=== PATIENT | male | born 1985 | race Caucasian/White ===

== ENCOUNTER 2016-06-27 15:00 | Emergency (ER) | payer MEDICAID, OTHER ==
[2016-06-27 17:33] LABS: Hematocrit 46 % (42-52); Hemoglobin 15.3 g/dl (14.0-18.0); Mean Corpuscular HGB Conc 33 g/dl (31-36); Mean Corpuscular Hemoglobin 30 pg (27-31); Mean Corpuscular Volume 88 fL (80-94); Mean Platelet Volume 8 um3 (7.4-10.4); Red Blood Count 5.21 10^6/ul (4.0-5.4); Red Cell Distribution Width 14 % (10.5-15); White Blood Count 12.3 10^3/ul (3.5-10.8)
[2016-06-27] MEDS ORDERED: Ketorolac INJ* 30 MG/ML 1 ML VIAL IV ONE ×2 (17:40)
[2016-06-27] MEDS ORDERED: NS 0.9% 1000 ML* 2,000 ML IV ONE ×2 (17:40)
[2016-06-27 17:49] LABS: Albumin 4.8 g/dL (3.2-5.2); BUN/Creatinine Ratio 12.1 (8-20); Calcium 10.1 mg/dL (8.6-10.3); EGFR African American 125.8 (>60); EGFR Non-African American 97.8 (>60); Globulin 3.4 g/dL (2-4); Potassium 3.8 mmol/L (3.5-5.0); Total Bilirubin 0.4 mg/dL (0.2-1.0); Total Protein 8.2 g/dL (6.4-8.9)
[2016-06-27] MEDS ORDERED: Ondansetron INJ* 2 MG/ML VIAL IV ONE ×2 (18:02)
[2016-06-27 18:05] LABS: Urine Bilirubin Negative (Negative); Urine Glucose Negative (Negative); Urine Nitrite Negative (Negative)
[2016-06-27] MEDS ORDERED: Iohexol 300* (CONTRAST) 10 ML SDV IV ONE (18:51)
[2016-06-27] MEDS ORDERED: HYDROmorphone INJ* 1 MG/ML CARPUJECT SYRINGE IV ONE ×2 (18:58)
--- NOTE | 2016-06-27 20:28 | RAD ---
INDICATION: Abdominal pain COMPARISON: CT October 17, 2015; CT June 10, 2015 TECHNIQUE: Axial source images were obtained from the hemidiaphragms to the symphysis pubis following administration of oral and intravenous contrast. 150 mL Omnipaque 300 was utilized. Coronal and sagittal reconstructed images were acquired. Lung bases: The lung bases are clear. Liver: The liver is normal in size. There is hepatic steatosis. There are no masses. There is no ductal dilatation. Gallbladder: There are no calcified gallstones. There is no evidence of wall thickening or pericholecystic fluid. Spleen: The spleen is normal in size. There are no masses. Pancreas: There is no focal pancreatic mass or ductal dilatation. Adrenal glands: There is no evidence of adrenal mass. Kidneys: The kidneys are normal in size and position. There are prompt nephrograms and there is prompt excretion bilaterally. There are no new renal parenchymal masses. There is an exophytic 1.7 cm left renal lesion appearing unchanged. There is no evidence of nephrolithiasis. Adenopathy: There is no evidence of adenopathy by size criteria. Fluid collections: There are no free or localized fluid collections. Vessels:There are no significant atherosclerotic changes involving the aorta. There is no focal aneurysm. The iliac vessels are normal in caliber. The IVC appears normal. GI tract: The upper GI tract is unremarkable. There is small bowel herniation at the site of ostomy reversal left lower quadrant. There are no findings of obstruction or strangulation. There is resection at the level of the sigmoid colon. Anastomosis appears widely patent. Scattered diverticula of the descending colon. The large bowel is otherwise unremarkable. The appendix is visualized and appears normal. Pelvic organs: The prostate and seminal vesicles appear normal Bladder: There are no bladder masses. Abdominal and pelvic soft tissues: Diastasis rectus abdominis with suture, unchanged. Incisional hernia left lower quadrant as noted above. Osseous structures: There are no acute osseous findings. Other: None IMPRESSION: 1. Colostomy reversal left lower quadrant. There is herniation of bowel at the operative site with no findings of obstruction or strangulation. 2. Normal appendix. 3. Rectus muscle diastases 4. Scattered diverticula descending colon. 5. Hepatic steatosis. 6. Stable left renal lesion
[2016-06-27 20:52] VITALS: BP 120/79
--- NOTE | 2016-06-29 23:19 | ED ---
Braulio Parada Erika, scribed for Jamie Jennings MD on 06/27/16 at 1748 . Abdominal Pain/Male - HPI Summary HPI Summary: Patient is a 30-year-old male presenting to the ED with a CC of LLQ pain. He reports a Hx of a perforated bowel last year due to a foreign body in the anus. He had a colostomy bad after the foreign body removal, and had a reversal surgery in January [address] Umaña. Today, patient notes pain in the LLQ, aggravated by palpation and PO intake. He states he has been nauseated secondary to pain, but denies vomiting. He also reports he has not had a BM today, and usually has one daily around 12:00. Patient notes he has had difficulty keeping a stream of urine going as well so he has been urinating small amounts of urine more frequently. - History of Current Complaint Chief Complaint: EDAbdPain Stated Complaint: ABD PAIN Time Seen by Provider: 06/27/16 17:25 Hx Obtained From: Patient Onset/Duration: Gradual Onset, Lasting Hours, Still Present Timing: Constant Severity Currently: Moderate Pain Intensity: 9 Pain Scale Used: 0-10 Numeric Location: Discrete At: LLQ Radiates: No Aggravating Factor(s): Food, Other: - palpation Alleviating Factor(s): Nothing Associated Signs And Symptoms: Positive: Nausea. Negative: Vomiting - Allergies/Home Medications Allergies/Adverse Reactions: Allergies Allergy/AdvReac Type Severity Reaction Status Date / Time Sulfa Antibiotics Allergy Unknown Verified 01/03/16 12:38 Reaction Details Home Medications: Home Medications clonazePAM TAB(*) [KlonoPIN TAB(*)] 0.5 mg PO BEDTIME 06/27/16 [History Confirmed 06/27/16] PMH/Surg Hx/FS Hx/Imm Hx Endocrine/Hematology History: Denies: Hx Diabetes, Hx Systemic Lupus Erythematosus Cardiovascular History: Denies: Hx Congestive Heart Failure, Hx Hypertension Respiratory History: Denies: Hx Seasonal Allergies, Hx Sleep Apnea GI History: Reports: Other GI Disorders - PERFORATED BOWEL, COLOSTOMY History: Reports: Other Problems/Disorders - CYST LEFT KIDNEY Denies: Hx Dialysis, Hx Renal Disease Musculoskeletal History: Denies: Hx Rheumatoid Arthritis Sensory History: Denies: Hx Contacts or Glasses, Hx Hearing Aid Opthamlomology History: Denies: Hx Contacts or Glasses Neurological History: Reports: Hx Headaches, Hx Migraine - 2x month;take tylenol , Other Neuro Impairments/Disorders - BIPOLAR, INSOMNIA Denies: Hx Dementia, Hx Developmental Delay, Hx Nerve Disease, Hx Seizures, Hx Spinal Cord Injury, Hx Transient Ischemic Attacks (TIA) Psychiatric History: Reports: Hx Anxiety, Hx Depression, Hx Community Mental Health Tx, Hx Bipolar Disorder, Hx of Violent Episodes Against Others, Hx Substance Abuse, Other Psychiatric Issues/Disorders Denies: Hx Eating Disorder - Cancer History Hx Chemotherapy: No - Surgical History Surgery Procedure, Year, and Place: 2016, Open Abdomen for colectomy, colostomy placement. abscess drainage buttocks Hx Anesthesia Reactions: Yes - PATIENT STATES WOKE UP WITH A SEVERE HEADACHE, VIVID DREAMS - Immunization History Date of Tetanus Vaccine: Unknown Infectious Disease History: Yes Infectious Disease History: Reports: Hx of Known/Suspected MRSA Denies: Traveled Outside the US in Last 30 Days - Family History Family History: Denies FHx anesthesia reaction - Social History Lives: Detention - Prison Hx Substance Use: Yes Substance Use Comment - Amount & Last Used: hx of polysubstance abuse - NOT AT THIS TIME Hx Tobacco Use: Yes Smoking Status (MU): Light Every Day Tobacco Smoker Type: Cigarettes Amount Used/How Often: 1-2 CIGARETTES A DAY Have You Smoked in the Last Year: Yes Review of Systems Positive: Abdominal Pain, Nausea. Negative: Vomiting Genitourinary: Other - decreased stream of urine All Other Systems Reviewed And Are Negative: Yes Physical Exam Triage Information Reviewed: Yes Vital Signs On Initial Exam: Initial Vitals Temp Pulse Resp BP Pulse Ox 97.7 F 118 18 150/110 100 06/27/16 15:22 06/27/16 15:22 06/27/16 15:22 06/27/16 15:22 06/27/16 15:22 Vital Signs Reviewed: Yes Appearance: Positive: Well-Appearing, No Pain Distress Skin: Positive: Warm, Skin Color Reflects Adequate Perfusion, Dry Head/Face: Positive: Normal Head/Face Inspection Eyes: Positive: Normal ENT: Positive: Normal ENT inspection Neck: Positive: Supple, Nontender Respiratory/Lung Sounds: Positive: Clear to Auscultation, Breath Sounds Present Cardiovascular: Positive: Tachycardia - at 118 on triage Abdomen Description: Positive: Soft, Other: - Tenderness to the LLQ. No hernia palpated. Healed scars on the abdomen Bowel Sounds: Positive: Present Musculoskeletal: Positive: Normal Neurological: Positive: Normal Psychiatric: Positive: Affect/Mood Appropriate Diagnostics - Vital Signs Vital Signs Temp Pulse Resp BP Pulse Ox 06/27/16 15:22 97.7 F 118 18 150/110 100 - Laboratory Lab Results: Lab Results 06/27/16 06/27/16 06/27/16 Range/Units 17:25 17:25 17:25 WBC 12.3 H (3.5-10.8) 10^3/ul RBC 5.21 (4.0-5.4) 10^6/ul Hgb 15.3 (14.0-18.0) g/dl Hct 46 (42-52) % MCV 88 (80-94) fL MCH 30 (27-31) pg MCHC 33 (31-36) g/dl RDW 14 (10.5-15) % Plt Count 246 (150-450) 10^3/ul MPV 8 (7.4-10.4) um3 Neut % (Auto) 63.9 (38-83) % Lymph % (Auto) 25.8 (25-47) % Russell % (Auto) 9.5 H (1-9) % Eos % (Auto) 0.3 (0-6) % Baso % (Auto) 0.5 (0-2) % Absolute Neuts (auto) 7.8 H (1.5-7.7) 10^3/ul Absolute Lymphs (auto) 3.2 (1.0-4.8) 10^3/ul Absolute Monos (auto) 1.2 H (0-0.8) 10^3/ul Absolute Eos (auto) 0 (0-0.6) 10^3/ul Absolute Basos (auto) 0.1 (0-0.2) 10^3/ul Absolute Nucleated RBC 0 10^3/ul Nucleated RBC % 0 Sodium 135 (133-145) mmol/L Potassium 3.8 (3.5-5.0) mmol/L Chloride 101 (101-111) mmol/L Carbon Dioxide 24 (22-32) mmol/L Anion Gap 10 (2-11) mmol/L BUN 11 (6-24) mg/dL Creatinine 0.91 (0.67-1.17) mg/dL Est GFR ( Amer) 125.8 (>60) Est GFR (Non-Af Amer) 97.8 (>60) BUN/Creatinine Ratio 12.1 (8-20) Glucose 84 (70-100) mg/dL Lactic Acid 2.0 (0.5-2.0) mmol/L Calcium 10.1 (8.6-10.3) mg/dL Total Bilirubin 0.40 (0.2-1.0) mg/dL AST 24 (13-39) U/L ALT 40 (7-52) U/L Alkaline Phosphatase 54 (34-104) U/L Total Protein 8.2 (6.4-8.9) g/dL Albumin 4.8 (3.2-5.2) g/dL Globulin 3.4 (2-4) g/dL Albumin/Globulin Ratio 1.4 (1-3) Lipase 67 (11.0-82.0) U/L Urine Color Urine Appearance Urine pH (5-9) Ur Specific [place] (1.010-1.030) Urine Protein (Negative) Urine Ketones (Negative) Urine Blood (Negative) Urine Nitrate (Negative) Urine Bilirubin (Negative) Urine Urobilinogen (Negative) Ur Leukocyte Esterase (Negative) Urine Glucose (Negative) 06/27/16 Range/Units 17:58 WBC (3.5-10.8) 10^3/ul RBC (4.0-5.4) 10^6/ul Hgb (14.0-18.0) g/dl Hct (42-52) % MCV (80-94) fL MCH (27-31) pg MCHC (31-36) g/dl RDW (10.5-15) % Plt Count (150-450) 10^3/ul MPV (7.4-10.4) um3 Neut % (Auto) (38-83) % Lymph % (Auto) (25-47) % Russell % (Auto) (1-9) % Eos % (Auto) (0-6) % Baso % (Auto) (0-2) % Absolute Neuts (auto) (1.5-7.7) 10^3/ul Absolute Lymphs (auto) (1.0-4.8) 10^3/ul Absolute Monos (auto) (0-0.8) 10^3/ul Absolute Eos (auto) (0-0.6) 10^3/ul Absolute Basos (auto) (0-0.2) 10^3/ul Absolute Nucleated RBC 10^3/ul Nucleated RBC % Sodium (133-145) mmol/L Potassium (3.5-5.0) mmol/L Chloride (101-111) mmol/L Carbon Dioxide (22-32) mmol/L Anion Gap (2-11) mmol/L BUN (6-24) mg/dL Creatinine (0.67-1.17) mg/dL Est GFR ( Amer) (>60) Est GFR (Non-Af Amer) (>60) BUN/Creatinine Ratio (8-20) Glucose (70-100) mg/dL Lactic Acid (0.5-2.0) mmol/L Calcium (8.6-10.3) mg/dL Total Bilirubin (0.2-1.0) mg/dL AST (13-39) U/L ALT (7-52) U/L Alkaline Phosphatase (34-104) U/L Total Protein (6.4-8.9) g/dL Albumin (3.2-5.2) g/dL Globulin (2-4) g/dL Albumin/Globulin Ratio (1-3) Lipase (11.0-82.0) U/L Urine Color Yellow Urine Appearance Clear Urine pH 7.0 (5-9) Ur Specific [place] 1.008 L (1.010-1.030) Urine Protein Negative (Negative) Urine Ketones Negative (Negative) Urine Blood Negative (Negative) Urine Nitrate Negative (Negative) Urine Bilirubin Negative (Negative) Urine Urobilinogen Negative (Negative) Ur Leukocyte Esterase Negative (Negative) Urine Glucose Negative (Negative) Result Diagrams: 06/27/16 17:25 06/27/16 17:25 Lab Statement: Any lab studies that have been ordered have been reviewed, and results considered in the medical decision making process. - CT CT A/P CT Interpretation Completed By: Radiologist - IMPRESSION: 1. Colostomy reversal left lower quadrant. There is herniation of bowel at the operative site with no findings of obstruction or strangulation. 2. Normal appendix. 3. Rectus muscle diastases 4. Scattered diverticula descending colon. 5. Hepatic steatosis. 6. Stable left renal lesion Re-Evaluation - Re-Evaluation First Eval Re-Evaluation Time: 20:34 Comment: Discussed CT results Abdominal Pain Fem Course/Dx - Course Course Of Treatment: Mr. Henson presented with pain from his incisional hernia site, His labs were fine and a CT showed no incarceraton of strangulation. - Diagnoses Provider Diagnoses: Incisional hernia Discharge - Discharge Plan Condition: Stable Disposition: LAW ENFORCEMENT/COURT Discharge Disposition Comment: Prison Patient Education Materials: Incisional Hernia (GEN) Referrals: Aj Umaña MD [Medical Doctor] - 2 Days Additional Instructions: Recommend ibuprofen as needed for the pain The documentation as recorded by the Braulio pena Erika accurately reflects the service I personally performed and the decisions made by me, Jamie Jennings MD.
== END 2016-06-27 20:51 ==
LOC: ED 15:00
DX: K43.2 Incisional hernia without obstruction or gangrene (principal); R10.32 Left lower quadrant pain
CPT/HCPCS: 36415; 74177; 80053; 81003; 83605; 83690; 85025; 96374; 96375; 99284; J1170; J1885; J2405; Q9967

== ENCOUNTER 2017-12-02 18:28 | Inpatient (IN) | payer MEDICAID, OTHER ==
--- NOTE | 2017-12-02 19:56 | ED ---
Psychiatric Complaint - HPI Summary HPI Summary: This is becky Malik documenting for attending Dr. Negrita Jefferson This patient is a 32 year old M presenting to [facility] with a chief complaint of psychosis. Pt was transferred from [facility]; he claims he was there for stomach problems and pain. He endorses SI. Transferred from [facility], c.o. abd pain, CT A/P was negative. HPI limited due to pts limited cooperation and mental state. - History Of Current Complaint Chief Complaint: EDMentalHealth Time Seen by Provider: 12/02/17 19:33 Hx Obtained From: Patient Onset/Duration: Still Present Timing: Constant Severity Initially: Moderate Severity Currently: Moderate Character: Anxious Aggravating Factor(s): Medication Non-compliance Alleviating Factor(s): Nothing Associated Signs And Symptoms: Positive: Confused Related History: Positive For: Prior Psychiatric Issues Has Suicidal: Reports: Thoughts Has Homicidal: Denies: Thoughts - Allergies/Home Medications Allergies/Adverse Reactions: Allergies Allergy/AdvReac Type Severity Reaction Status Date / Time MS Sulfa Antibiotics Allergy Unknown Verified 01/03/16 12:38 [Sulfa Antibiotics] Reaction Details Home Medications: Home Medications Citalopram TAB* [CeleXA TAB*] 40 mg PO DAILY 12/02/17 [History Confirmed ] Lisinopril 40 mg PO DAILY 12/02/17 [History Confirmed 12/02/17] Metoprolol Tartrate TAB* [Lopressor TAB*] 100 mg PO DAILY 12/02/17 [History Confirmed 12/02/17] OLANzapine TAB* [Zyprexa 5 MG TAB*] 5 mg PO DAILY 12/02/17 [History Confirmed ] cloNIDine TAB* [Catapres 0.1 MG TAB*] 0.1 mg PO TID 12/02/17 [History Confirmed 12/02/17] clonazePAM TAB(*) [KlonoPIN TAB(*)] 1 mg PO DAILY 12/02/17 [History Confirmed ] PMH/Surg Hx/FS Hx/Imm Hx Endocrine/Hematology History: Denies: Hx Diabetes, Hx Systemic Lupus Erythematosus Cardiovascular History: Denies: Hx Congestive Heart Failure, Hx Hypertension Respiratory History: Denies: Hx Seasonal Allergies, Hx Sleep Apnea GI History: Reports: Other GI Disorders - PERFORATED BOWEL, COLOSTOMY History: Reports: Other Problems/Disorders - CYST LEFT KIDNEY Denies: Hx Dialysis, Hx Renal Disease Musculoskeletal History: Denies: Hx Rheumatoid Arthritis Sensory History: Denies: Hx Contacts or Glasses, Hx Hearing Aid Opthamlomology History: Denies: Hx Contacts or Glasses Neurological History: Reports: Hx Headaches, Hx Migraine - 2x month;take tylenol , Other Neuro Impairments/Disorders - BIPOLAR, INSOMNIA Denies: Hx Dementia, Hx Developmental Delay, Hx Nerve Disease, Hx Seizures, Hx Spinal Cord Injury, Hx Transient Ischemic Attacks (TIA) Psychiatric History: Reports: Hx Anxiety, Hx Depression, Hx Community Mental Health Tx, Hx Bipolar Disorder, Hx of Violent Episodes Against Others, Hx Substance Abuse, Other Psychiatric Issues/Disorders Denies: Hx Eating Disorder - Cancer History Hx Chemotherapy: No - Surgical History Surgery Procedure, Year, and Place: 2016, Open Abdomen for colectomy, colostomy placement. abscess drainage buttocks Hx Anesthesia Reactions: Yes - PATIENT STATES WOKE UP WITH A SEVERE HEADACHE, VIVID DREAMS - Immunization History Date of Tetanus Vaccine: Unknown Infectious Disease History: No Infectious Disease History: Reports: Hx of Known/Suspected MRSA Denies: Traveled Outside the [place] in Last 30 Days - Family History Known Family History: Positive: Unknown Family History: Denies FHx anesthesia reaction - Social History Alcohol Use: None Alcohol Amount: UNKNOWN. HX ETOH abuse. Unk amount of alcohol ingested this visit Hx Substance Use: Yes Substance Use Type: Reports: None Substance Use Comment - Amount & Last Used: hx of polysubstance abuse - NOT AT THIS TIME Hx Tobacco Use: Yes Smoking Status (MU): Light Every Day Tobacco Smoker Type: Cigarettes Amount Used/How Often: 1-2 CIGARETTES A DAY Have You Smoked in the Last Year: Yes Review of Systems Negative: Fever Positive: Abdominal Pain Positive: Other - SI, psychosis All Other Systems Reviewed And Are Negative: Yes - Comments Additional Review of Systems Comments: ROS limited due to pt's mental state and cooperation level. Physical Exam - Summary Physical Exam Summary: VITAL SIGNS: Reviewed. GENERAL: Patient is a well-developed and nourished male who is lying comfortable in the stretcher. Patient is not in any acute respiratory distress. Pt was asleep, had to wake him up HEAD AND FACE: No signs of trauma. No ecchymosis, hematomas or skull depressions. No sinus tenderness. EYES: PERRLA, EOMI x 2, No injected conjunctiva, no nystagmus. EARS: Hearing grossly intact. Ear canals and tympanic membranes are within normal limits. MOUTH: Oropharynx within normal limits. NECK: Supple, trachea is midline, no adenopathy, no JVD, no carotid bruit, no c- spine tenderness, neck with full ROM. CHEST: Symmetric, no tenderness at palpation LUNGS: Clear to auscultation bilaterally. No wheezing or crackles. CVS: Regular rate and rhythm, S1 and S2 present, no murmurs or gallops appreciated. ABDOMEN: Soft, non-tender. No signs of distention. No rebound no guarding, and no masses palpated. Bowel sounds are normal. Complains of abdominal pain EXTREMITIES: FROM in all major joints, no edema, no cyanosis or clubbing. NEURO: Alert and oriented x 3. No acute neurological deficits. Speech is normal and follows commands. SKIN: Dry and warm PSYCH: Pt reluctant to answer questions, endorses SI. Triage Information Reviewed: Yes Vital Signs On Initial Exam: Initial Vitals Temp Pulse Resp BP Pulse Ox 98 F 84 16 100/50 98 12/02/17 19:27 12/02/17 19:27 12/02/17 19:27 12/02/17 19:27 12/02/17 19:27 Vital Signs Reviewed: Yes Diagnostics - Vital Signs Vital Signs Temp Pulse Resp BP Pulse Ox 12/02/17 19:27 98 F 84 16 100/50 98 - Laboratory Lab Statement: Any lab studies that have been ordered have been reviewed, and results considered in the medical decision making process. Re-Evaluation - Re-Evaluation First Eval Re-Evaluation Time: 20:52 Change: Unchanged Comment: pt requested an HIV test. Course/Dx - Course Course Of Treatment: A 32-year-old M presents to the ED with a CC of psychosis. (+) SI, abd pain, psychosis. (-) HI. PMHx schizophrenia, transfer from [facility]. In the ED course, pt was given alprazolam. - Differential Dx/Clinical Impression Provider Diagnosis: Depression Discharge - Sign-Out/Discharge Documenting (check all that apply): Sign-Out Patient Signing out patient TO: Juan michaud, dispo - Discharge Plan Referrals: Tylor Tabares JR PA [Primary Care Provider] -
[2017-12-02] MEDS ORDERED: ALPRAZolam TAB* 0.5 MG ONE (20:28)
[2017-12-02] MEDS ORDERED: ALPRAZolam TAB* 0.5 MG PO ONE (20:30)
[2017-12-03] MEDS ORDERED: cloNIDine TAB* 0.4 FIRST DOSE PT > 70 KG PO ONE ×2 (01:00→15:00)
--- NOTE | 2017-12-03 07:21 | ED ---
Progress - Progress Note Progress Note: Pt signed out from Dr. JUAREZ pending MHE. This is scribe Ed Jhoana documenting for attending Juan Sandoval MD. Re-Evaluation - Re-Evaluation First Eval Re-Evaluation Time: 20:52 Change: Unchanged Comment: pt requested an HIV test. Course/Dx - Course Course Of Treatment: A 32-year-old M presents to the ED with a CC of psychosis. (+) SI, abd pain, psychosis. (-) HI. PMHx schizophrenia, transfer from [facility]. In the ED course, pt was given alprazolam. After MHE, Dr. Bliss informed me that the pt will be admitted [facility] psych services. - Diagnoses Provider Diagnoses: Substance-induced psychotic disorder Discharge - Sign-Out/Discharge Documenting (check all that apply): Patient Departure - Discharge Plan Condition: Stable Disposition: ADMITTED TO [facility] Referrals: Tylor Tabares JR, PA [Primary Care Provider] -
--- NOTE | 2017-12-03 07:56 | RAD ---
HISTORY: cough COMPARISONS: August 30, 2015 VIEWS: 4: Frontal dual-energy and lateral views of the chest. FINDINGS: CARDIOMEDIASTINAL SILHOUETTE: The cardiomediastinal silhouette is normal. BRIGIDA: The brigida are normal. PLEURA: The costophrenic angles are sharp. No pleural abnormalities are noted. LUNG PARENCHYMA: The lungs are clear. ABDOMEN: The upper abdomen is clear. There is no subphrenic gas. BONES AND SOFT TISSUES: No bone or soft tissue abnormalities are noted. OTHER: None. IMPRESSION: NO ACTIVE CARDIOPULMONARY DISEASE.
--- NOTE | 2017-12-03 08:05 | PN ---
ED Flex Patient Progress Note Date of Service: 12/02/17 Subjective: This is a 32 year-old M who is pending admission to [facility] / transfer to another psychiatric facility / discharge to home / or being observed secondary to SI. Pt. was initially evaluated at [facility] yesterday for abdominal pain. He then endorsed SI and was transferred to [facility] for MHE. Pt. reported had a CT scan at [facility] which was negative. Blood work unremarkable. Pt. examined in F4 around 729. He is pacing the room. Pt. states he "just doesn't feel well." Hard to decipher if he means mentally or physically. Pt. states his abd. pain has improved. He admits to a productive cough. Pt. appears in distress. Objective: Vitals: Most recent vital signs documented below. Appears in pain. Heart: rrr Lungs: CTA or with rales, rhonchi, wheezing Laboratory: Current laboratory results documented below. Assessment: Pending MHE. Pt. stating he does not feel well today. CT scan and labs unremarkable from yesterday and pt. states his abd. pain has improved. He does c/o a cough. CXR was obtained and is negative for infiltrate per radiology. U/A done yesterday which was neg. for infection. HPI from [facility] does not that he has a hx of heroine use, suspect he is going through narcotic withdrawal. Plan: Pending psychiatric or medical consultation to observe / transfer / admit / discharge will follow up daily . Morning medications noted. Vital Signs Temp Pulse Resp BP Pulse Ox 96.5 F 92 18 125/84 99 12/03/17 07:49 12/03/17 07:49 12/03/17 07:49 12/03/17 07:49 12/03/17 07:49 Lab Results - Entire Visit 12/02/17 21:01 HIV 1&2 Antibody Rapid Nonreactive
[2017-12-03] MEDS ORDERED: OLANzapine TAB* 5 MG PO ONE (08:30)
[2017-12-03] MEDS ORDERED: Metoprolol Tartrate TAB* 100 MG TAB PO ONE (08:30)
[2017-12-03] MEDS ORDERED: Lisinopril TAB* 10 MG PO ONE (08:30)
[2017-12-03] MEDS ORDERED: cloNIDine TAB* 0.1 MG PO ONE ×2 (08:30→14:40)
[2017-12-03] MEDS ORDERED: Nicotine Inhaler* 10 MG AMP INH ONE (08:30)
[2017-12-03] MEDS ORDERED: Citalopram TAB* 40 MG PO ONE (08:30)
[2017-12-03] MEDS ORDERED: clonazePAM TAB(*) 1 MG PO ONE (08:30)
[2017-12-03] MEDS ORDERED: cloNIDine TAB* 0.1 MG ADDITIONAL PRN DOSES DAYS 1-4 PO (09:00)
[2017-12-03] MEDS: Mouth Piece, Nicotine* 1 EACH CARTRIDGE INH PRN (09:31)
--- NOTE | 2017-12-03 12:02 | PN ---
Subjective - Subjective Date of Service: 12/03/17 Service Type: 90162 Hosp care 35 min high complexity Subjective: Patient lying in bed upon approach, moderately easy to rouse. He presents as anxious with poor eye contact and stuttered speech. He is evasive of most questions and attributes this to poor memory. He states he came to the hospital "because I feel like I'm losing my mind." Patient states he was a client of [facility] and [facility] but has not been for 2 months. He states that he is "trying to do something else with my life" and "Trying to get a job or something to function on my own." He reports last use of suboxone was approx one week ago and denies opiate use. He states he primarily utilizes OTC immodium and benadryl "To get a buzz." He reports last use of methamphetamine, opiates, marijuana was "a long time." He states he would prefer inpatient psychiatric hospitalization versus substance use treatment due to VH and AH. Objective - Appearance Appearance: Well Developed/Nourished Dysmorphic Features: Yes Hygiene: Dirty Grooming: Disheveled - Behavior Psychomotor Activities: Abnormal-Increased - restlessness, hand cramping Exhibits Abnormal Movement: Yes - Attitude and Relatedness Attitude and Relatedness: Withdrawn Eye Contact: Poor - Speech Quality: Unpressured Latencies: Short Quantity: Terse - Mood Patient's Decription of Mood: "Terrible" - Affect Observed Affect: Constricted Affect Consistent with: Dysphoria - Thought Process Patient's Thought Process: Impoverished Thought Content: Yes Passive Wish, Yes Paranoid Ideation, No Suicidal Planning, No Homicidal Ideation - Sensorium Experiencing Hallucinations: Yes Type of Hallucinations: Visual: Yes, Auditory: Yes, Command: No - Level of Consciousness Level of Consciousness: Alert Orientation: Yes Intact, Yes Orientated to Time, Yes Orientated to Place, Yes Orientated to Person - Impulse Control Impulse Control: Impaired - Insight and Judgement Insight and Judgement: Impaired Assessment - Assessment Merits Inpatient Hospitalization: For Immediate Safety, For Stabilization Inpatient DSM-V Dx: F19.259 Clinical Impression: 32yo white male with history of multiple psychiatric hospitalizations and substance use treatment who presents to the ED with c/o psychosis and inability to care for himself. He has impaired insight into impact of substance use and is at risk for direct and indirect harm to himself. Plan - Plan Treatment Plan: Name: RENETTA ALMANZA Birthdate: 1985 [id number] admit to adult BSU on 9.39 status, awaiting bed availability. initiate detox clonidine protocol. Continued Medication Management: Start Medication Medications: Current Medications Device (Nicotine Mouth Piece*) 1 each INH .USE WITH NICOTROL PRN PRN Reason: CRAVING Last Admin: 12/03/17 09:31 Dose: 1 each - Discharge Plan Discharge Plan: Drug/Alcohol Rehab
[2017-12-03] MEDS ORDERED: cloNIDine TAB* 0.1 MG Q4H DAYS 1 TO 4 PO SCH ×2 (14:00→18:00)
[2017-12-03] MEDS ORDERED: cloNIDine TAB* 0.1 MG ONE ×2 (14:42→23:39)
[2017-12-03] MEDS: Nicotine Patch Removal NOTE PATCH OFF SCH (21:00)
[2017-12-03] MEDS: Nicotine Inhaler* 10 MG AMP INH PRN (23:40)
[2017-12-03] MEDS: Ibuprofen TAB* 400 MG Q6H PRN PO (23:40)
[2017-12-03] MEDS: Carisoprodol TAB* 350 MG Q6H PRN PO (23:40)
[2017-12-04] MEDS: cloNIDine TAB* 0.1 MG Q4H DAYS 1 TO 4 PO SCH ×7 (03:40→22:25)
[2017-12-04] MEDS ORDERED: Vitamin THERAPEUTIC TAB ONE (05:21)
[2017-12-04] MEDS ORDERED: Nicotine PATCH 21 MG/24 HR* PATCH ONE (05:22)
[2017-12-04] MEDS: Ibuprofen TAB* 400 MG Q6H PRN PO ×3 (06:40→19:26)
[2017-12-04] MEDS: Carisoprodol TAB* 350 MG Q6H PRN PO ×3 (06:40→19:25)
[2017-12-04] MEDS: Nicotine PATCH 21 MG/24 HR* PATCH TRANSDERM SCH (08:51)
[2017-12-04] MEDS: Vitamin THERAPEUTIC TAB PO SCH (08:51)
[2017-12-04] MEDS: cloNIDine TAB* 0.1 MG ADDITIONAL PRN DOSES DAYS 1-4 PO (11:10)
--- NOTE | 2017-12-04 15:53 | HP ---
HISTORY AND PHYSICAL: DATE OF ADMISSION: 12/03/17 SUPERVISING PSYCHIATRIST: Dr. Ton Meade.* (DICTATED BY EMMANUEL CHUA NP) JUSTIFICATION FOR ADMISSION: The patient presented to the emergency department with multiple psychiatric complaints including suicidal ideation with a plan to overdose on medications as well as cutting wrist. The patient merits hospitalization for immediate safety and stabilization. CHIEF COMPLAINT: "I don't want to live anymore." HISTORY OF PRESENT ILLNESS: John is a 32-year-old white male, single, unemployed, who is currently residing at his parent's home. He has a significant psychiatric history including multiple psychiatric hospitalizations and substance use treatment history. The patient presents as anxious and dysphoric. He is difficult to engage in conversation primarily related to poor memory and possibly evasiveness. He identifies active suicidal ideations and he states that he recently tried to overdose on medications. He endorses seeing "weird stuff including colors and bugs." He also states he hears weird noises and sees shadows. He states that this has been happening for the past few weeks. The patient continues to say over and over again "I don't know what is wrong with me." He is denying recent opiate use other than loperamide. States that he has also utilized meth recently. However, his reports are inconsistent. He initially tells me that he has not had loperamide for 2 months or so. He later tells me that he has had that more recently. He states that he has had Benadryl most recently and utilizes this "to get high." The patient has been seeing Dr. Loera for Suboxone assisted treatment since March of 2017. He states that 2 weeks ago, he received a 2-week supply but overused it and has been without for a week. I checked I-STOP and his last Suboxone was filled on 11/18/17. He also has remote history of Ambien. No other controlled prescriptions noted. LEAD FABRICATOR reference #[id number]. The patient reports that he stopped going to [facility] and [facility] approximately 2 months ago. Prior to that, he was living at "[facility]." He states this is a residence for people who have been released from retirement. Prior to that, he was in [facility] for 6 months. He states he completed his sentence and has been off parole since Kalani of this year. He denies recent alcohol or marijuana use. The patient denies violence even while incarcerated; he states that he made verbal threats to his girlfriend last year, but otherwise, denies history of violence. SUBSTANCE USE HISTORY: The patient reports a history of alcohol, opiate pills, loperamide pills, and methamphetamine use. He started drinking alcohol when he was approximately 14, drank daily for a couple of years in his 20s. He started using prescription opiates around age 18. He would ingest, snort, smoke, and use IV. He has a history of muscle relaxant abuse. He first tried methamphetamines when he was 25 and used them daily for a couple of years. He reports his most recent use was in the past month or two. He has used cannabis in the past, but has not "for a long time." He reports abusing Benadryl consistently and cough medicine around 21. He smokes approximately 1 to 2 packs of cigarettes per day. The patient has been to multiple substance use rehabs, [facility] twice as an adolescent, [facility], and [place]. He states that he has been to inpatient rehab at [facility] for 97 days and [facility], which he did not complete. He states there were "too many people." He was most recently at [facility] in April 2017. PAST PSYCHIATRIC HISTORY: See above for substance use treatment. The patient has been to multiple inpatient psychiatric treatments, [facility] in September 2014 following an overdose of Benadryl with alcohol, [facility] in [place] in 2010 and 2013, possibly this year as well. [facility] at some point in the past as well. PAST PSYCHIATRIC DIAGNOSES: Polysubstance dependence and bipolar disorder. Past medications trials include alprazolam, diazepam, lorazepam, sertraline, bupropion, venlafaxine, Depakote, lithium, gabapentin, quetiapine, citalopram, and most recently buprenorphine/Suboxone. PAST SUICIDE/SELF HARM: The patient has overdosed several times. Denies intention to kill himself except for the most recent attempt. The patient denies history of self- harm. TRAUMA ABUSE HISTORY: The patient denies. LEGAL HISTORY: The patient had multiple arrests, charges for disorderly conduct , probation, and DUIs, although he denies a history of violence. There is a history of violence when intoxicated. As stated above, the patient spent 6 months in [facility] and states that he completed parole in May of this year. PAST MEDICAL HISTORY: Hospitalized in the ICU in August 2007, 2014, each time after being found unresponsive and was intubated; history of obesity; hypertension. PAST SURGICAL HISTORY: Foreign body removal, temporary colostomy, hernia repair. ALLERGIES: SULFA. PRIMARY CARE PROVIDER: [facility] in [place]. PHARMACY: [facility] in [place]. CURRENT MEDICATIONS: Prescribed by Dr. Moody Loera: 1. Metoprolol. 2. Clonidine. 3. Suboxone. 4. Lisinopril per the patient's report. FAMILY PSYCHIATRIC HISTORY: Father with a history of alcohol use disorder and aunt with OCD. The patient denies known family history of suicides. SOCIAL HISTORY: The patient raised in [place] by both parents. He has a younger sister, who has moved out of the home and lives with her boyfriend. The patient was in school until 10th grade and later attained his GED, states he lapsed because of the substance use problem. He has worked in [employer] in the past, but denies work for the past 4 years. He identifies as heterosexual and is not currently dating. He has never been . Does not have children. He receives food stamp assistance but denies other income. REVIEW OF SYSTEMS: Constitutional: Negative. No fever, chills, or fatigue. ENT: Negative. Cardiovascular: Negative. Denies chest pain or palpations. Respiratory: Negative. Denies shortness of breath or cough. Genitourinary: Negative. Musculoskeletal: Negative. Neurological: Negative. PHYSICAL EXAMINATION GENERAL: The patient is well appearing and well nourished. VITAL SIGNS: Height 5 feet 8 inches, weight 220 pounds. T 99.4, pulse 92, respirations 20, O2 saturation 100%, BP 116/69. HEENT: Head and face: Normal head and face inspection. Eyes: Positive EOMI. PERRL. Conjunctivae clear. NECK: Supple. Full ROM. Trachea midline. RESPIRATORY: Lung sounds clear to auscultation. Breath sounds present. CARDIOVASCULAR: Heart: RRR. Pulses are symmetrical in both upper and lower extremities. MUSCULOSKELETAL: Normal strength. ROM intact. NEUROLOGIC: Normal sensory and motor intact. Alert and oriented x3. Normal gait noted. Cerebellar function intact. SKIN: Warm, dry, and color reflects adequate perfusion. MENTAL STATUS EXAM: The patient is a 32-year-old white male, who appears younger than stated age. He is wearing his own clothing, casually dressed. He has poor ADLs and is disheveled. He sits on couch opposite interviewer with a slumped posture. He is alert and oriented x3. Eye contact is poor. Speech is mumbled and stuttered. Mood is anxious with constricted affect. Thought process is impoverished. Thought content positive for SI. The patient endorses visual hallucinations. Insight and judgment are poor. Cognitively, he is awake and answers questions with what would appear to be an average intellect. LABORATORY DATA: Obtained in the emergency department, the patient was transferred from [facility] and previously medically cleared, only labs we have from yesterday are urine drug screen that was positive for benzodiazepines consistent with the patient receiving these in the emergency department. DIAGNOSES: 1. Substance-induced psychotic disorder. 2. Opiate use disorder. 3. Methamphetamine use disorder. 4. Bipolar disorder by history, consider antisocial personality traits. ASSESSMENT: A 32-year-old white male with a history of polysubstance dependence , past psychiatric hospitalization, previous overdoses, who was admitted after being brought to the emergency department by his mother with complaints of suicidal ideation and recent suicide attempt. The patient has had extensive psychiatric and substance use treatments with poor results and outcomes. He has been involved in legal system for multiple years and denies current involvement. He reports a history of bipolar disorder and has been treated for this in the past. He recently has been seeing an network diagnostic support specialist and been prescribed Suboxone since March of 2017. Apparently, he misused his most recent prescription and has been out of this for 1 week. He appears to be in active withdrawal and is on the clonidine protocol presently. I would like to collaborate with his network diagnostic support specialist prior to reinstating Suboxone. PLAN: The patient is admitted to the adult behavioral services unit on involuntary status. His code status is full. He is on 15-minute checks for his safety. He is encouraged to participate in supportive milieu, DANIEL programming, individual sessions with staff, and psychoeducational groups. As stated above, he is being monitored on clonidine protocol at this time. We will consider reinstating Suboxone treatment after gaining collateral from his outpatient provider. We will also involve [facility] and his family for discharge planning. Estimated length of stay is 1 week. EMMANUEL CHUA, PAID SEARCH MANAGER [id number]/CPS #: [id number] RACHEL
[2017-12-04] MEDS: Al Hydrox/Mg Hydrox/Simet LIQ* 30 ML UDC PO PRN (18:03)
[2017-12-04] MEDS: risperiDONE-M * 1 MG TAB.ORADIS PO SCH (21:59)
[2017-12-04] MEDS: Nicotine Patch Removal NOTE PATCH OFF SCH (22:27)
[2017-12-05] MEDS: cloNIDine TAB* 0.1 MG Q4H DAYS 1 TO 4 PO SCH ×5 (04:58→18:58)
[2017-12-05] MEDS: Carisoprodol TAB* 350 MG Q6H PRN PO ×2 (05:28→12:17)
[2017-12-05] MEDS: Ibuprofen TAB* 400 MG Q6H PRN PO ×2 (05:28→12:17)
[2017-12-05] MEDS: Acetaminophen TAB* 325 MG PO PRN ×2 (09:00→19:00)
[2017-12-05] MEDS: Vitamin THERAPEUTIC TAB PO SCH (09:00)
[2017-12-05] MEDS: Nicotine PATCH 21 MG/24 HR* PATCH TRANSDERM SCH (09:01)
[2017-12-05] MEDS: cloNIDine TAB* 0.1 MG ADDITIONAL PRN DOSES DAYS 1-4 PO ×2 (16:32→21:18)
[2017-12-05] MEDS: risperiDONE-M * 1 MG TAB.ORADIS PO SCH (21:19)
[2017-12-05] MEDS: Nicotine Patch Removal NOTE PATCH OFF SCH (21:36)
[2017-12-06] MEDS: cloNIDine TAB* 0.1 MG Q4H DAYS 1 TO 4 PO SCH ×7 (00:11→21:35)
[2017-12-06] MEDS: cloNIDine TAB* 0.1 MG ADDITIONAL PRN DOSES DAYS 1-4 PO ×3 (00:23→12:37)
[2017-12-06] MEDS: Carisoprodol TAB* 350 MG Q6H PRN PO ×4 (00:30→20:59)
[2017-12-06] MEDS: Vitamin THERAPEUTIC TAB PO SCH (08:29)
[2017-12-06] MEDS: Nicotine PATCH 21 MG/24 HR* PATCH TRANSDERM SCH (08:29)
[2017-12-06] MEDS: Ibuprofen TAB* 400 MG Q6H PRN PO ×2 (10:30→19:00)
--- NOTE | 2017-12-06 14:57 | PN ---
Subjective - Subjective Date of Service: 12/06/17 Service Type: 60507 Hosp care 15 min low complexity Subjective: Renetta was in his room sitting at the edge of his bed anxious and tremulous. Says that he wasn't feeling well at all. Seeing things like faces and shadows and his heart was racing. VS shows tachicardia with heart rate in 120s. Extremely dysphoric, down gazed with some stuttering. Reports of poor sleep last night. Continues to have suicidal thoughts without any active plans. Objective - Appearance Appearance: Well Developed/Nourished, Healthy Appearing Dysmorphic Features: No Hygiene: Mal-odorous Grooming: Disheveled - Behavior Psychomotor Activities: Abnormal-Decreased Exhibits Abnormal Movement: No - Attitude and Relatedness Attitude and Relatedness: Well Related Eye Contact: Poor - Speech Quality: Unpressured Latencies: Normal Quantity: Appropriate - Mood Patient's Decription of Mood: "Terrible" - Affect Observed Affect: Constricted - Thought Process Patient's Thought Process: Coherent, Goal Directed Thought Content: Yes Passive Wish, No Suicidal Planning, No Homicidal Ideation, No Paranoid Ideation - Sensorium Experiencing Hallucinations: Yes Type of Hallucinations: Visual: Yes - faces and shadows, Auditory: No, Command: No - Level of Consciousness Level of Consciousness: Alert Orientation: Yes Intact, Yes Orientated to Time, Yes Orientated to Place, Yes Orientated to Person - Impulse Control Impulse Control: Tenuous - Insight and Judgement Insight and Judgement: Poor - Group Participation Particating in Group Activities: No - Medication Management Medication Management Adherence: Yes Assessment - Assessment Merits Inpatient Hospitalization: For Immediate Safety, For Stabilization, For Discharge Planning Inpatient DSM-V Dx: F19.259 Clinical Impression: Appears to be withdrawing from Opiates. Plan - Plan Treatment Plan: Name: RENETTA ALMANZA Birthdate: 1985 [id number] Continued Medication Management: Continue Outpt Medication Medications: Current Medications Acetaminophen (Tylenol Tab*) 650 mg PO Q4H PRN PRN Reason: for pain; or Temp >101 F Last Admin: 12/05/17 19:00 Dose: 650 mg Al Hydrox/Mg Hydrox/Simethicone (Maalox Plus*) 30 ml PO Q4H PRN PRN Reason: INDIGESTION Last Admin: 12/04/17 18:03 Dose: 30 ml Carisoprodol (Soma Tab*) 350 mg PO Q6H PRN PRN Reason: MUSCLE CRAMPS/ACHING Last Admin: 12/06/17 08:32 Dose: 350 mg Clonidine HCl (Catapres Tab*) 0.1 mg PO Q4HR ELIJAH Stop: 12/06/17 23:59 Last Admin: 12/06/17 10:30 Dose: 0.1 mg Clonidine HCl (Catapres Tab*) 0 - 0.6 mg PO Q8HR ELIJAH Stop: 12/07/17 23:59 Clonidine HCl (Catapres Tab*) 0 - 0.3 mg PO Q8HR ELIJAH Stop: 12/08/17 23:59 Clonidine HCl (Catapres Tab*) 0 - 0.15 mg PO Q12HR ELIJAH; Protocol Stop: 12/09/17 23:59 Clonidine HCl (Catapres Tab*) 0.1 mg PO Q4H PRN PRN Reason: DETOX Stop: 12/06/17 23:59 Last Admin: 12/06/17 12:37 Dose: 0.1 mg Device (Nicotine Mouth Piece*) 1 each INH .USE WITH NICOTROL PRN PRN Reason: CRAVING Last Admin: 12/03/17 09:31 Dose: 1 each Ibuprofen (Motrin Tab*) 400 mg PO Q6H PRN PRN Reason: BONE/JOINT PAIN Last Admin: 12/06/17 10:30 Dose: 400 mg Multivitamins (Theragran Tab*) 1 tab PO DAILY [facility] Last Admin: 12/06/17 08:29 Dose: 1 tab Nicotine (Nicotine Inhaler*) 10 mg INH Q2H PRN PRN Reason: CRAVING Last Admin: 12/03/17 23:40 Dose: 10 mg Nicotine (Nicotine Patch 21 Mg/24 Hr*) 1 patch TRANSDERM DAILY@0800 [facility] Last Admin: 12/06/17 08:29 Dose: 1 patch Nicotine Polacrilex (Nicotine Gum*) 2 mg PO Q2H PRN PRN Reason: CRAVING Pharmacy Profile Note (Nicotine Patch Removal Note*) 1 note PATCH OFF 2100 [facility] Last Admin: 12/05/17 21:36 Dose: 1 note Risperidone (Risperdal-M Tab *) 1 mg PO BEDTIME [facility]; Protocol Last Admin: 12/05/17 21:19 Dose: 1 mg - Discharge Plan Discharge Plan: Drug/Alcohol Rehab
[2017-12-06] MEDS: risperiDONE-M * 1 MG TAB.ORADIS PO SCH (20:59)
[2017-12-06] MEDS: Nicotine Patch Removal NOTE PATCH OFF SCH (21:01)
[2017-12-07] MEDS: Carisoprodol TAB* 350 MG Q6H PRN PO ×4 (02:57→22:29)
[2017-12-07] MEDS ORDERED: cloNIDine TAB* DOSING for DAY 5 PO SCH (06:00)
[2017-12-07] MEDS: Nicotine PATCH 21 MG/24 HR* PATCH TRANSDERM SCH (07:00)
[2017-12-07] MEDS: cloNIDine TAB* DOSING for DAY 5 PO SCH ×3 (07:00→22:30)
[2017-12-07] MEDS: Vitamin THERAPEUTIC TAB PO SCH (09:05)
[2017-12-07] MEDS: Ibuprofen TAB* 400 MG Q6H PRN PO ×3 (09:06→22:30)
[2017-12-07] MEDS: Acetaminophen TAB* 325 MG PO PRN ×2 (11:09→18:55)
[2017-12-07] MEDS: Nicotine GUM* 2 MG PO PRN ×2 (11:09→15:35)
--- NOTE | 2017-12-07 15:49 | PN ---
Subjective - Subjective Date of Service: 12/07/17 Service Type: 90652 Hosp care 25 min moderate complexity Subjective: Patient primarily seclusive to his room, noted to be awake for meals and select groups. He reports continued physical distress from opiate withdrawal. Oxide Furnace Tender informed him of attempted interactions with Dr Loera and voicemail exchanges. He states he overused suboxone previously and was told by Dr Loera that if this were to happen again, he would likely be discharged from the clinic. Patient reports restless legs r/t risperidone. He also reports difficulty sleeping due to tonic jerk waking him during first stage of sleep. He endorses nightmares, as well. We discuss various medications and he reports past efficacy with quetiapine. He is instructed to stay out of bed and awake throughout the day, to stay mentally and physically active to promote sleep. Objective - Appearance Appearance: Obese Dysmorphic Features: Yes Hygiene: Dirty Grooming: Disheveled - Behavior Psychomotor Activities: Abnormal-Increased - restless Exhibits Abnormal Movement: Yes - Attitude and Relatedness Attitude and Relatedness: Superficially Cooperative Eye Contact: Poor - Speech Quality: Unpressured Latencies: Normal Quantity: Appropriate - Mood Patient's Decription of Mood: "Okay" - Affect Observed Affect: Depressed Affect Consistent with: Dysphoria - Thought Process Patient's Thought Process: Impoverished Thought Content: Yes Passive Wish, No Suicidal Planning, No Homicidal Ideation, No Paranoid Ideation - Sensorium Experiencing Hallucinations: Yes Type of Hallucinations: Visual: Yes, Auditory: Yes, Command: No - Level of Consciousness Level of Consciousness: Alert Orientation: Yes Intact, Yes Orientated to Time, Yes Orientated to Place, Yes Orientated to Person - Impulse Control Impulse Control: Impaired - Insight and Judgement Insight and Judgement: Impaired - Group Participation Particating in Group Activities: Yes Group Participation Comments: partial - Medication Management Medication Management Adherence: Yes Assessment - Assessment Merits Inpatient Hospitalization: For Immediate Safety, For Stabilization Inpatient DSM-V Dx: F19.259 Clinical Impression: 32yo white male with history of multiple psychiatric hospitalizations and substance use treatment who presents to the ED with c/o psychosis and inability to care for himself. He has impaired insight into impact of substance use and is at risk for direct and indirect harm to himself. Plan - Plan Treatment Plan: Name: RENETTA ALMANZA Birthdate: 1985 [id number] continue acute intensive psychiatric treatment and clonidine detox protocol. DC risperidone and start quetiapine titration. include family and outpatient providers in discharge planning. Continued Medication Management: Start Medication Medications: Current Medications Acetaminophen (Tylenol Tab*) 650 mg PO Q4H PRN PRN Reason: for pain; or Temp >101 F Last Admin: 12/07/17 11:09 Dose: 650 mg Al Hydrox/Mg Hydrox/Simethicone (Maalox Plus*) 30 ml PO Q4H PRN PRN Reason: INDIGESTION Last Admin: 12/04/17 18:03 Dose: 30 ml Carisoprodol (Soma Tab*) 350 mg PO Q6H PRN PRN Reason: MUSCLE CRAMPS/ACHING Last Admin: 12/07/17 15:34 Dose: 350 mg Clonidine HCl (Catapres Tab*) 0 - 0.6 mg PO Q8HR ELIJAH Stop: 12/07/17 23:59 Last Admin: 12/07/17 14:02 Dose: 0.1 mg Clonidine HCl (Catapres Tab*) 0 - 0.3 mg PO Q8HR ELIJAH Stop: 12/08/17 23:59 Clonidine HCl (Catapres Tab*) 0 - 0.15 mg PO Q12HR ELIJAH; Protocol Stop: 12/09/17 23:59 Device (Nicotine Mouth Piece*) 1 each INH .USE WITH NICOTROL PRN PRN Reason: CRAVING Last Admin: 12/03/17 09:31 Dose: 1 each Ibuprofen (Motrin Tab*) 400 mg PO Q6H PRN PRN Reason: BONE/JOINT PAIN Last Admin: 12/07/17 15:33 Dose: 400 mg Multivitamins (Theragran Tab*) 1 tab PO DAILY [facility] Last Admin: 12/07/17 09:05 Dose: 1 tab Nicotine (Nicotine Inhaler*) 10 mg INH Q2H PRN PRN Reason: CRAVING Last Admin: 12/03/17 23:40 Dose: 10 mg Nicotine (Nicotine Patch 21 Mg/24 Hr*) 1 patch TRANSDERM DAILY@0800 [facility] Last Admin: 12/07/17 07:00 Dose: 1 patch Nicotine Polacrilex (Nicotine Gum*) 2 mg PO Q2H PRN PRN Reason: CRAVING Last Admin: 12/07/17 15:35 Dose: 2 mg Pharmacy Profile Note (Nicotine Patch Removal Note*) 1 note PATCH OFF 2099 [facility] Last Admin: 12/06/17 21:01 Dose: 1 note Quetiapine Fumarate (Seroquel Tab*) 50 mg PO BEDTIME [facility] - Discharge Plan Discharge Plan: Drug/Alcohol Rehab Outpatient Program: [facility]
[2017-12-07] MEDS: Mouth Piece, Nicotine* 1 EACH CARTRIDGE INH PRN (18:19)
[2017-12-07] MEDS: Nicotine Inhaler* 10 MG AMP INH PRN (18:19)
[2017-12-07] MEDS ORDERED: QUEtiapine TAB* 25 MG PO SCH (21:00)
[2017-12-07] MEDS: Nicotine Patch Removal NOTE PATCH OFF SCH (21:24)
[2017-12-08] MEDS ORDERED: cloNIDine TAB* DOSING for DAY 6 PO SCH (06:00)
[2017-12-08] MEDS: Nicotine GUM* 2 MG PO PRN ×4 (06:00→17:26)
[2017-12-08] MEDS: Nicotine PATCH 21 MG/24 HR* PATCH TRANSDERM SCH (07:02)
[2017-12-08] MEDS: cloNIDine TAB* DOSING for DAY 6 PO SCH ×3 (08:56→22:09)
[2017-12-08] MEDS: Vitamin THERAPEUTIC TAB PO SCH (08:56)
[2017-12-08] MEDS: Ibuprofen TAB* 400 MG Q6H PRN PO ×2 (08:58→16:11)
[2017-12-08] MEDS: Carisoprodol TAB* 350 MG Q6H PRN PO ×3 (10:28→22:09)
[2017-12-08] MEDS: Gabapentin CAP(*) 100 MG PO SCH ×3 (10:28→20:33)
--- NOTE | 2017-12-08 11:31 | PN ---
[facility]: Group Therapy Note - Service Type Service Type: 79553 Group Psychotherapy - Cognitive Behavioral Group Therapy ( CBT):Patient was attentive and participatory in CBT programming this morning, and remained in good behavioral control. Patient expressed positive insights regarding relevant treatment interventions and goals.
[2017-12-08] MEDS: Acetaminophen TAB* 325 MG PO PRN ×2 (13:13→18:33)
--- NOTE | 2017-12-08 14:20 | PN ---
Subjective - Subjective Date of Service: 12/08/17 Service Type: 71128 Hosp care 35 min high complexity Subjective: Patient lying in bed upon approach in late morning. He reports severe anxiety as a barrier to interacting with others on the unit. He began working on DANIEL packet given to him yesterday and has been intermittently attending groups. He signed an HAY for his parents. Babcock Tester phoned his mother, Mariya, and spoke for 40 minutes. We discussed his presentation and treatment recommendations. Mariya reports a long history of "mental health problems" and concern that this has not been addressed fully by various agencies. Babcock Tester informed her of difficulty identifying primary mental health diagnoses when substance use is present but that he is being prescribed medications to target mood instability, depression and anxiety. Mariya states that she and her (patient's father), Poncho, have "tried everything" in regards to helping Renetta. She states he moved back in with them approx 2 months ago after being evicted from a rented room. She states he has been locking himself in his room yet doesn't want to be alone. She states he doesn' t perform ADLs or clean up after himself, forcing her to do so. She states he breaks house rules by smoking in his room and leaving cigarettes burning on the furniture. She states he went to [facility] but this was not helpful. Babcock Tester encouraged multiple times that she and Poncho utilize PAULA , [employer] and supports for themselves in caring for Renetta. Babcock Tester encouraged Mariya and Poncho to identify if Renetta can return to their home, and if so, to create boundaries and expectations for Renetta. Objective - Appearance Appearance: Obese Dysmorphic Features: Yes Hygiene: Dirty Grooming: Disheveled - Behavior Psychomotor Activities: Normal Exhibits Abnormal Movement: No - Attitude and Relatedness Attitude and Relatedness: Superficially Cooperative Eye Contact: Poor - Speech Quality: Unpressured Latencies: Short Quantity: Terse - Mood Patient's Decription of Mood: "Anxious" - Affect Observed Affect: Constricted Affect Consistent with: Dysphoria - Thought Process Patient's Thought Process: Impoverished Thought Content: Yes Passive Wish, Yes Paranoid Ideation, No Suicidal Planning, No Homicidal Ideation - Sensorium Experiencing Hallucinations: Yes Type of Hallucinations: Visual: Yes, Auditory: No, Command: No - Level of Consciousness Level of Consciousness: Alert Orientation: Yes Intact, Yes Orientated to Time, Yes Orientated to Place, Yes Orientated to Person - Impulse Control Impulse Control: Impaired - Insight and Judgement Insight and Judgement: Impaired - Group Participation Particating in Group Activities: Yes Group Participation Comments: partial - Medication Management Medication Management Adherence: Yes Assessment - Assessment Merits Inpatient Hospitalization: For Immediate Safety, For Stabilization, Consolidate Improvements, For Discharge Planning, Pending Safe DC Plan Inpatient DSM-V Dx: F19.259 Clinical Impression: 32yo white male with history of multiple psychiatric hospitalizations and substance use treatment who presents to the ED with c/o psychosis and inability to care for himself. He has impaired insight into impact of substance use and is at risk for direct and indirect harm to himself. Plan - Plan Treatment Plan: Name: RENETTA ALMANZA Birthdate: 1985 [id number] continue acute intensive psychiatric treatment and clonidine detox protocol. may decrease to q30min observation. start gabapentin and continue quetiapine titration. include family and outpatient providers in discharge planning. Continued Medication Management: Start Medication Medications: Current Medications Acetaminophen (Tylenol Tab*) 650 mg PO Q4H PRN PRN Reason: for pain; or Temp >101 F Last Admin: 12/08/17 13:13 Dose: 650 mg Al Hydrox/Mg Hydrox/Simethicone (Maalox Plus*) 30 ml PO Q4H PRN PRN Reason: INDIGESTION Last Admin: 12/04/17 18:03 Dose: 30 ml Carisoprodol (Soma Tab*) 350 mg PO Q6H PRN PRN Reason: MUSCLE CRAMPS/ACHING Last Admin: 12/08/17 10:28 Dose: 350 mg Clonidine HCl (Catapres Tab*) 0 - 0.3 mg PO Q8HR [facility] Stop: 12/08/17 23:59 Last Admin: 12/08/17 08:56 Dose: 0.1 mg Clonidine HCl (Catapres Tab*) 0 - 0.15 mg PO Q12HR [facility]; Protocol Stop: 12/09/17 23:59 Device (Nicotine Mouth Piece*) 1 each INH .USE WITH NICOTROL PRN PRN Reason: CRAVING Last Admin: 12/07/17 18:19 Dose: 1 each Gabapentin (Neurontin Cap(*)) 200 mg PO TID [facility] Last Admin: 12/08/17 10:28 Dose: 200 mg Ibuprofen (Motrin Tab*) 400 mg PO Q6H PRN PRN Reason: BONE/JOINT PAIN Last Admin: 12/08/17 08:58 Dose: 400 mg Multivitamins (Theragran Tab*) 1 tab PO DAILY [facility] Last Admin: 12/08/17 08:56 Dose: 1 tab Nicotine (Nicotine Inhaler*) 10 mg INH Q2H PRN PRN Reason: CRAVING Last Admin: 12/07/17 18:19 Dose: 10 mg Nicotine (Nicotine Patch 21 Mg/24 Hr*) 1 patch TRANSDERM DAILY@0800 [facility] Last Admin: 12/08/17 07:02 Dose: 1 patch Nicotine Polacrilex (Nicotine Gum*) 2 mg PO Q2H PRN PRN Reason: CRAVING Last Admin: 12/08/17 10:29 Dose: 2 mg Pharmacy Profile Note (Nicotine Patch Removal Note*) 1 note PATCH OFF 2100 [facility] Last Admin: 12/07/17 21:24 Dose: 1 note Quetiapine Fumarate (Seroquel Tab*) 100 mg PO BEDTIME [facility] - Discharge Plan Discharge Plan: Outpatient Follow Up Outpatient Program: Rigoberto ARANGO, MONI
[2017-12-08] MEDS: Nicotine Inhaler* 10 MG AMP INH PRN (17:26)
[2017-12-08] MEDS ORDERED: QUEtiapine TAB* 100 MG PO SCH (21:00)
[2017-12-08] MEDS: Nicotine Patch Removal NOTE PATCH OFF SCH (22:11)
[2017-12-09] MEDS: Nicotine PATCH 21 MG/24 HR* PATCH TRANSDERM SCH (06:34)
[2017-12-09] MEDS: Carisoprodol TAB* 350 MG Q6H PRN PO ×2 (06:34→13:29)
[2017-12-09] MEDS: Vitamin THERAPEUTIC TAB PO SCH (08:31)
[2017-12-09] MEDS: Gabapentin CAP(*) 100 MG PO SCH (08:31)
[2017-12-09] MEDS: cloNIDine TAB* DOSING FOR DAY 7 PO SCH ×2 (08:32→21:10)
[2017-12-09] MEDS: Acetaminophen TAB* 325 MG PO PRN (08:34)
[2017-12-09] MEDS: Nicotine GUM* 2 MG PO PRN ×2 (08:34→13:29)
[2017-12-09] MEDS ORDERED: cloNIDine TAB* DOSING FOR DAY 7 PO SCH (09:00)
--- NOTE | 2017-12-09 12:24 | PN ---
Subjective - Subjective Date of Service: 12/09/17 Service Type: 55163 Hosp care 25 min moderate complexity Subjective: Renetta was quite anxious when meeting today with myself and his SW, Vy Morales. He remains noncommittal to choosing between inpatient and outpatient substance abuse plans for follow up after discharge. He complains of insomnia caused by involuntary movements at nighttime. He also admits that social anxiety is a dissuading factor in opting for inpatient drug rehab. The patient' s affect is extremely constricted throughout the exchange and he makes limited eye contact. He reports that he is tolerating the introduction of both quetiapine and gabapentin to his medication regimen, denying side effects. He' s clearly frustrated by his inability to maintain sobriety in the past and opens up that abstinence in the past has exposed him to difficult underlying feelings. He denies SI or HI. Objective - Appearance Appearance: Well Developed/Nourished Dysmorphic Features: No Hygiene: Normal Grooming: Well Kept - Behavior Psychomotor Activities: Normal Exhibits Abnormal Movement: No - Attitude and Relatedness Attitude and Relatedness: Cooperative Eye Contact: Poor - Speech Quality: Unpressured Latencies: Normal Quantity: Terse - Mood Patient's Decription of Mood: "Anxious" - Affect Observed Affect: Constricted Affect Consistent with: Dysphoria - Thought Process Patient's Thought Process: Coherent Thought Content: No Passive Wish, No Suicidal Planning, No Homicidal Ideation, No Paranoid Ideation - Sensorium Experiencing Hallucinations: No, Sensorium is Clear Type of Hallucinations: Visual: No, Auditory: No, Command: No - Level of Consciousness Level of Consciousness: Alert Orientation: Yes Intact, Yes Orientated to Time, Yes Orientated to Place, Yes Orientated to Person - Impulse Control Impulse Control: Tenuous - Insight and Judgement Insight and Judgement: Impaired - Group Participation Particating in Group Activities: No - Medication Management Medication Management Adherence: Yes Assessment - Assessment Merits Inpatient Hospitalization: For Immediate Safety, For Stabilization Inpatient DSM-V Dx: F19.259 Clinical Impression: 32 y.o. single, white male with a history of polysubstance misuse who presented voluntarily to the ED seeking inpatient hospitalization for SI with plan to OD on medications. Plan - Plan Treatment Plan: Name: RENETTA ALMANZA Birthdate: 1985 [id number] The patient is currently on a clonidine taper for opioid dependence and remains anxious and depressed. We will increase quetiapine from 100 to 150mg PO qhs and increase gabapentin from 200 to 300mg PO TID. We will continue to build a therapeutic relationship and strongly encourage acceptance of inpatient rehab after discharge. Continue inpatient level services. Continued Medication Management: Start Medication Medications: Current Medications Acetaminophen (Tylenol Tab*) 650 mg PO Q4H PRN PRN Reason: for pain; or Temp >101 F Last Admin: 12/09/17 08:34 Dose: 650 mg Al Hydrox/Mg Hydrox/Simethicone (Maalox Plus*) 30 ml PO Q4H PRN PRN Reason: INDIGESTION Last Admin: 12/04/17 18:03 Dose: 30 ml Carisoprodol (Soma Tab*) 350 mg PO Q6H PRN PRN Reason: MUSCLE CRAMPS/ACHING Last Admin: 12/09/17 06:34 Dose: 350 mg Clonidine HCl (Catapres Tab*) 0 - 0.15 mg PO Q12HR [facility]; Protocol Stop: 12/09/17 23:59 Last Admin: 12/09/17 08:32 Dose: 0.05 mg Device (Nicotine Mouth Piece*) 1 each INH .USE WITH NICOTROL PRN PRN Reason: CRAVING Last Admin: 12/07/17 18:19 Dose: 1 each Gabapentin (Neurontin Cap(*)) 200 mg PO TID [facility] Last Admin: 12/09/17 08:31 Dose: 200 mg Ibuprofen (Motrin Tab*) 400 mg PO Q6H PRN PRN Reason: BONE/JOINT PAIN Last Admin: 12/08/17 16:11 Dose: 400 mg Multivitamins (Theragran Tab*) 1 tab PO DAILY [facility] Last Admin: 12/09/17 08:31 Dose: 1 tab Nicotine (Nicotine Inhaler*) 10 mg INH Q2H PRN PRN Reason: CRAVING Last Admin: 12/08/17 17:26 Dose: 10 mg Nicotine (Nicotine Patch 21 Mg/24 Hr*) 1 patch TRANSDERM DAILY@0800 [facility] Last Admin: 12/09/17 06:34 Dose: 1 patch Nicotine Polacrilex (Nicotine Gum*) 2 mg PO Q2H PRN PRN Reason: CRAVING Last Admin: 12/09/17 08:34 Dose: 2 mg Pharmacy Profile Note (Nicotine Patch Removal Note*) 1 note PATCH OFF 2100 [facility] Last Admin: 12/08/17 22:11 Dose: 1 note Quetiapine Fumarate (Seroquel Tab*) 100 mg PO BEDTIME [facility] Last Admin: 12/08/17 20:34 Dose: 100 mg - Discharge Plan Discharge Plan: Inpatient Hospitalization
[2017-12-09] MEDS: Gabapentin CAP(*) 300 MG PO SCH ×2 (13:29→21:12)
[2017-12-09] MEDS: Ibuprofen TAB* 400 MG Q6H PRN PO (16:17)
[2017-12-09] MEDS ORDERED: QUEtiapine TAB* 100 MG PO SCH (21:00)
[2017-12-09] MEDS: Nicotine Patch Removal NOTE PATCH OFF SCH (21:15)
[2017-12-10] MEDS: Carisoprodol TAB* 350 MG Q6H PRN PO ×2 (06:06→15:42)
[2017-12-10] MEDS: Nicotine GUM* 2 MG PO PRN ×2 (06:07→15:42)
[2017-12-10] MEDS: Acetaminophen TAB* 325 MG PO PRN ×2 (06:07→15:41)
[2017-12-10] MEDS: Vitamin THERAPEUTIC TAB PO SCH (08:21)
[2017-12-10] MEDS: Nicotine PATCH 21 MG/24 HR* PATCH TRANSDERM SCH (08:21)
[2017-12-10] MEDS: Gabapentin CAP(*) 300 MG PO SCH (08:21)
--- NOTE | 2017-12-10 12:03 | PN ---
Subjective - Subjective Date of Service: 12/10/17 Service Type: [id number] Hosp care 15 min low complexity Subjective: Renetta is seen in coverage for NPP, Florencia Frost. He remains isolative, depressed with speech latency and severe affect constriction. "It's hard to explain. It's the social anxiety and I keep hearing things." He also complains of confused thoughts, difficulty making up his mind and jerking involuntary movements exclusively at night when he's trying to fall asleep. He remains noncommittal about inpatient versus outpatient rehab, asking me "What do you all think I should do?" He denies active SI but admits that he's questioning the value in life when he cannot seem to remains sober. "I've let so many people down. I've gotten help from a lot of people but I never seem to make it for long without fucking up." He is tolerating medications well. Objective - Appearance Appearance: Well Developed/Nourished Dysmorphic Features: No Hygiene: Normal Grooming: Well Kept - Behavior Psychomotor Activities: Abnormal-Decreased Exhibits Abnormal Movement: No - Attitude and Relatedness Attitude and Relatedness: Cooperative Eye Contact: Poor - Speech Quality: Unpressured Latencies: Long Quantity: Terse - Mood Patient's Decription of Mood: "Anxious" - Affect Observed Affect: Constricted Affect Consistent with: Dysphoria - Thought Process Patient's Thought Process: Coherent Thought Content: Yes Passive Wish, No Suicidal Planning, No Homicidal Ideation, No Paranoid Ideation - Sensorium Experiencing Hallucinations: Yes Type of Hallucinations: Visual: No, Auditory: Yes, Command: No - Level of Consciousness Level of Consciousness: Alert Orientation: Yes Intact, Yes Orientated to Time, Yes Orientated to Place, Yes Orientated to Person - Impulse Control Impulse Control: Tenuous - Insight and Judgement Insight and Judgement: Impaired - Group Participation Particating in Group Activities: No - Medication Management Medication Management Adherence: Yes Assessment - Assessment Merits Inpatient Hospitalization: For Immediate Safety, For Stabilization Inpatient DSM-V Dx: F19.259 Clinical Impression: 32 y.o. single, white male with a history of polysubstance misuse who presented voluntarily to the ED seeking inpatient hospitalization for SI with plan to OD on medications. Plan - Plan Treatment Plan: Name: RENETTA ALMANZA Birthdate: 1985 [id number] The patient is currently on a clonidine taper for opioid dependence and remains anxious and depressed. We will increase quetiapine from 150 to 300mg PO qhs and increase gabapentin from 300 to 400mg PO TID. We will add hydroxyzine 50mg PO as a prn for anxiety and start benztropine 1mg PO qhs to prevent dystonia. The patient likely has co-occurring substance abuse and mental health problems and is not yet safe for discharge or transition to treatment. We will continue to build a therapeutic relationship and get him to accept both his issues. Will order MMPI for better diagnostic understanding of his issues. Continue inpatient level services. Continued Medication Management: Different Medication Medications: Current Medications Acetaminophen (Tylenol Tab*) 650 mg PO Q4H PRN PRN Reason: for pain; or Temp >101 F Last Admin: 12/10/17 06:07 Dose: 650 mg Al Hydrox/Mg Hydrox/Simethicone (Maalox Plus*) 30 ml PO Q4H PRN PRN Reason: INDIGESTION Last Admin: 12/04/17 18:03 Dose: 30 ml Carisoprodol (Soma Tab*) 350 mg PO Q6H PRN PRN Reason: MUSCLE CRAMPS/ACHING Last Admin: 12/10/17 06:06 Dose: 350 mg Device (Nicotine Mouth Piece*) 1 each INH .USE WITH NICOTROL PRN PRN Reason: CRAVING Last Admin: 12/07/17 18:19 Dose: 1 each Ibuprofen (Motrin Tab*) 400 mg PO Q6H PRN PRN Reason: BONE/JOINT PAIN Last Admin: 12/09/17 16:17 Dose: 400 mg Multivitamins (Theragran Tab*) 1 tab PO DAILY [facility] Last Admin: 12/10/17 08:21 Dose: 1 tab Nicotine (Nicotine Inhaler*) 10 mg INH Q2H PRN PRN Reason: CRAVING Last Admin: 12/08/17 17:26 Dose: 10 mg Nicotine (Nicotine Patch 21 Mg/24 Hr*) 1 patch TRANSDERM DAILY@0800 [facility] Last Admin: 12/10/17 08:21 Dose: 1 patch Nicotine Polacrilex (Nicotine Gum*) 2 mg PO Q2H PRN PRN Reason: CRAVING Last Admin: 12/10/17 06:07 Dose: 2 mg Pharmacy Profile Note (Nicotine Patch Removal Note*) 1 note PATCH OFF 2100 [facility] Last Admin: 12/09/17 21:15 Dose: 1 note - Discharge Plan Discharge Plan: Inpatient Hospitalization
[2017-12-10] MEDS: Gabapentin CAP(*) 400 MG PO SCH ×2 (13:46→20:15)
[2017-12-10] MEDS: hydrOXYzine HCL TAB* 50 MG PO PRN ×2 (13:47→20:15)
[2017-12-10] MEDS: Nicotine Inhaler* 10 MG AMP INH PRN (15:42)
[2017-12-10] MEDS: QUEtiapine TAB* 300 MG PO SCH (20:15)
[2017-12-10] MEDS ORDERED: Benztropine TAB* 1 MG PO SCH (21:00)
[2017-12-10] MEDS: Nicotine Patch Removal NOTE PATCH OFF SCH (22:44)
[2017-12-11] MEDS: Nicotine GUM* 2 MG PO PRN ×3 (05:35→18:45)
[2017-12-11] MEDS: Carisoprodol TAB* 350 MG Q6H PRN PO ×2 (05:35→12:51)
[2017-12-11] MEDS: Nicotine PATCH 21 MG/24 HR* PATCH TRANSDERM SCH (08:30)
[2017-12-11] MEDS: Vitamin THERAPEUTIC TAB PO SCH (08:32)
[2017-12-11] MEDS: Gabapentin CAP(*) 400 MG PO SCH ×3 (08:32→21:44)
[2017-12-11] MEDS: hydrOXYzine HCL TAB* 50 MG PO PRN ×2 (09:11→18:45)
[2017-12-11] MEDS: Acetaminophen TAB* 325 MG PO PRN (12:51)
--- NOTE | 2017-12-11 14:37 | PN ---
Subjective - Subjective Date of Service: 12/11/17 Service Type: [id number] Hosp care 15 min low complexity Subjective: Renetta is seen for follow up in coverage for NPP, Florencia Frost. He is less anxious today and actually makes some eye contact. He continues to have difficulty expressing himself and it takes him awhile to articulate that he is suffering from extreme restlessness in the evening before bed. "I've heard of restless legs but this is more in my upper body and arms. It feels like I've got to move." He denies SI and says he will work on being more active on the unit. He also asks about the lab results from [facility], which I do not have access to. Objective - Appearance Appearance: Obese Dysmorphic Features: No Hygiene: Normal Grooming: Well Kept - Behavior Psychomotor Activities: Normal Exhibits Abnormal Movement: No - Attitude and Relatedness Attitude and Relatedness: Cooperative Eye Contact: Fair - Speech Quality: Unpressured Latencies: Normal Quantity: Terse - Mood Patient's Decription of Mood: "Anxious" - Affect Observed Affect: Constricted Affect Consistent with: Dysphoria - Thought Process Patient's Thought Process: Coherent Thought Content: No Passive Wish, No Suicidal Planning, No Homicidal Ideation, No Paranoid Ideation - Sensorium Experiencing Hallucinations: No, Sensorium is Clear Type of Hallucinations: Visual: No, Auditory: No, Command: No - Level of Consciousness Level of Consciousness: Alert Orientation: Yes Intact, Yes Orientated to Time, Yes Orientated to Place, Yes Orientated to Person - Impulse Control Impulse Control: Tenuous - Insight and Judgement Insight and Judgement: Fair - Group Participation Particating in Group Activities: No - Medication Management Medication Management Adherence: Yes Assessment - Assessment Merits Inpatient Hospitalization: For Immediate Safety, For Stabilization Inpatient DSM-V Dx: F19.259 Clinical Impression: 32 y.o. single, white male with a history of polysubstance misuse who presented voluntarily to the ED seeking inpatient hospitalization for SI with plan to OD on medications. Plan - Plan Treatment Plan: Name: RENETTA ALMANZA Birthdate: 1985 [id number] The patient is currently on a clonidine taper for opioid dependence and remains anxious and depressed. We have increased quetiapine to 300mg PO qhs and increased gabapentin to 400mg PO TID. We will replace benztropine with a trial of propranolol 20mg PO qhs, as it appears that he is having nightly akathisia, perhaps secondary to quetiapine. The patient likely has co-occurring substance abuse and mental health problems and is not yet safe for discharge or transition to SA treatment. We will continue to build a therapeutic relationship and get him to accept both his issues. Will await MMPI results for better diagnostic understanding of his issues. Continue inpatient level services. Continued Medication Management: Start Medication Medications: Current Medications Acetaminophen (Tylenol Tab*) 650 mg PO Q4H PRN PRN Reason: for pain; or Temp >101 F Last Admin: 12/11/17 12:51 Dose: 650 mg Al Hydrox/Mg Hydrox/Simethicone (Maalox Plus*) 30 ml PO Q4H PRN PRN Reason: INDIGESTION Last Admin: 12/04/17 18:03 Dose: 30 ml Carisoprodol (Soma Tab*) 350 mg PO Q6H PRN PRN Reason: MUSCLE CRAMPS/ACHING Last Admin: 12/11/17 12:51 Dose: 350 mg Device (Nicotine Mouth Piece*) 1 each INH .USE WITH NICOTROL PRN PRN Reason: CRAVING Last Admin: 12/07/17 18:19 Dose: 1 each Gabapentin (Neurontin Cap(*)) 400 mg PO TID [facility] Last Admin: 12/11/17 08:32 Dose: 400 mg Hydroxyzine HCl (Atarax Tab*) 50 mg PO Q6H PRN PRN Reason: ANXIETY Last Admin: 12/11/17 09:11 Dose: 50 mg Ibuprofen (Motrin Tab*) 400 mg PO Q6H PRN PRN Reason: BONE/JOINT PAIN Last Admin: 12/09/17 16:17 Dose: 400 mg Multivitamins (Theragran Tab*) 1 tab PO DAILY [facility] Last Admin: 12/11/17 08:32 Dose: 1 tab Nicotine (Nicotine Inhaler*) 10 mg INH Q2H PRN PRN Reason: CRAVING Last Admin: 12/10/17 15:42 Dose: 10 mg Nicotine (Nicotine Patch 21 Mg/24 Hr*) 1 patch TRANSDERM DAILY@0800 [facility] Last Admin: 12/11/17 08:30 Dose: 1 patch Nicotine Polacrilex (Nicotine Gum*) 2 mg PO Q2H PRN PRN Reason: CRAVING Last Admin: 12/11/17 12:51 Dose: 2 mg Pharmacy Profile Note (Nicotine Patch Removal Note*) 1 note PATCH OFF 2099 [facility] Last Admin: 12/10/17 22:44 Dose: Not Given Quetiapine Fumarate (Seroquel Tab*) 300 mg PO BEDTIME [facility] Last Admin: 12/10/17 20:15 Dose: 300 mg - Discharge Plan Discharge Plan: Inpatient Hospitalization
[2017-12-11] MEDS: QUEtiapine TAB* 300 MG PO SCH (21:44)
[2017-12-11] MEDS: Propranolol TAB* 20 MG PO SCH (21:44)
[2017-12-11] MEDS: Nicotine Patch Removal NOTE PATCH OFF SCH (21:45)
[2017-12-12] MEDS: Carisoprodol TAB* 350 MG Q6H PRN PO ×3 (00:03→20:50)
[2017-12-12] MEDS: Nicotine GUM* 2 MG PO PRN ×5 (00:04→20:50)
[2017-12-12] MEDS: hydrOXYzine HCL TAB* 50 MG PO PRN ×3 (02:06→14:17)
[2017-12-12] MEDS: Vitamin THERAPEUTIC TAB PO SCH (08:32)
[2017-12-12] MEDS: Gabapentin CAP(*) 400 MG PO SCH ×3 (08:33→20:46)
[2017-12-12] MEDS: Nicotine PATCH 21 MG/24 HR* PATCH TRANSDERM SCH (08:33)
[2017-12-12] MEDS: Acetaminophen TAB* 325 MG PO PRN (11:06)
[2017-12-12] MEDS: Propranolol TAB* 20 MG PO SCH (20:45)
[2017-12-12] MEDS: QUEtiapine TAB* 300 MG PO SCH (20:50)
[2017-12-12] MEDS: Nicotine Patch Removal NOTE PATCH OFF SCH (22:21)
[2017-12-13] MEDS: hydrOXYzine HCL TAB* 50 MG PO PRN ×4 (00:25→21:29)
[2017-12-13] MEDS: Nicotine GUM* 2 MG PO PRN ×4 (00:26→18:22)
[2017-12-13] MEDS: Carisoprodol TAB* 350 MG Q6H PRN PO ×3 (06:30→21:29)
[2017-12-13] MEDS: Nicotine PATCH 21 MG/24 HR* PATCH TRANSDERM SCH (07:00)
[2017-12-13] MEDS: Gabapentin CAP(*) 400 MG PO SCH ×3 (09:39→20:25)
[2017-12-13] MEDS: Vitamin THERAPEUTIC TAB PO SCH (09:39)
[2017-12-13] MEDS: Nicotine Inhaler* 10 MG AMP INH PRN (18:22)
[2017-12-13] MEDS: QUEtiapine TAB* 300 MG PO SCH (20:26)
[2017-12-13] MEDS: Propranolol TAB* 20 MG PO SCH (20:26)
[2017-12-13] MEDS: Nicotine Patch Removal NOTE PATCH OFF SCH (21:31)
[2017-12-14] MEDS: hydrOXYzine HCL TAB* 50 MG PO PRN ×3 (05:20→21:20)
[2017-12-14] MEDS: Nicotine GUM* 2 MG PO PRN ×5 (05:20→21:20)
[2017-12-14] MEDS: Carisoprodol TAB* 350 MG Q6H PRN PO ×3 (05:20→21:20)
[2017-12-14] MEDS: Nicotine PATCH 21 MG/24 HR* PATCH TRANSDERM SCH (07:00)
[2017-12-14] MEDS: Vitamin THERAPEUTIC TAB PO SCH (09:30)
[2017-12-14] MEDS: Gabapentin CAP(*) 400 MG PO SCH ×3 (09:31→21:20)
--- NOTE | 2017-12-14 13:12 | PN ---
[facility]: Group Therapy Note - Service Type Service Type: [id number] Group Psychotherapy - Cognitive Behavioral Group Therapy ( CBT):Patient attended CBT programming this morning and presented with flat affect that did not vary with discussion. Although responsive to direct prompts to respond to questions, patient did not engage in spontaneous conversation.
--- NOTE | 2017-12-14 16:03 | PN ---
Subjective - Subjective Date of Service: 12/14/17 Service Type: 79694 Hosp care 25 min moderate complexity Subjective: Patient conversed with teletypewriter installer fully, albeit with poor eye contact. He reports he has been journaling which seems helpful. He attempts to explain thoughts but has difficulty doing so. He often apologizes for not being able to explain himself. Patient endorses worthlessness, hopelessness and guilt. He states he is "afraid of doing something wrong" in every aspect of his life. He endorses rumination and indecisiveness. He identifies that sedating substances relieved the above symptoms, which eventually and consistently leads to relapses. He states that he happened upon a combination of benadryl and loperimide that was equally effective as opiates. He is receptive to information in regards to medication suggestions. Objective - Appearance Appearance: Well Developed/Nourished Dysmorphic Features: Yes Hygiene: Normal Grooming: Fairly Well Kept - Behavior Psychomotor Activities: Normal Exhibits Abnormal Movement: No - Attitude and Relatedness Attitude and Relatedness: Cooperative Eye Contact: Poor - Speech Quality: Unpressured Latencies: Normal Quantity: Appropriate - Mood Patient's Decription of Mood: "Anxious" - Affect Observed Affect: Constricted Affect Consistent with: Dysphoria - Thought Process Patient's Thought Process: Impoverished Thought Content: Yes Passive Wish, No Suicidal Planning, No Homicidal Ideation, No Paranoid Ideation - Sensorium Experiencing Hallucinations: No, Sensorium is Clear Type of Hallucinations: Visual: No, Auditory: No, Command: No - Level of Consciousness Level of Consciousness: Alert Orientation: Yes Intact, Yes Orientated to Time, Yes Orientated to Place, Yes Orientated to Person - Impulse Control Impulse Control: Impaired - Insight and Judgement Insight and Judgement: Impaired - Group Participation Particating in Group Activities: Yes - Medication Management Medication Management Adherence: Yes Assessment - Assessment Merits Inpatient Hospitalization: For Immediate Safety, For Stabilization, Consolidate Improvements Inpatient DSM-V Dx: F19.259 Clinical Impression: 32yo white male with history of multiple psychiatric hospitalizations and substance use treatment who presents to the ED with c/o psychosis and inability to care for himself. He has impaired insight into impact of substance use and is at risk for direct and indirect harm to himself. Plan - Plan Treatment Plan: Name: RENETTA ALMANZA Birthdate: 1985 [id number] continue acute intensive psychiatric treatment. may allow staff pass. DC quetiapine and start lurasidone due to side effects. include family and outpatient providers in discharge planning. Continued Medication Management: Different Medication Medications: Current Medications Acetaminophen (Tylenol Tab*) 650 mg PO Q4H PRN PRN Reason: for pain; or Temp >101 F Last Admin: 12/12/17 11:06 Dose: 650 mg Al Hydrox/Mg Hydrox/Simethicone (Maalox Plus*) 30 ml PO Q4H PRN PRN Reason: INDIGESTION Last Admin: 12/04/17 18:03 Dose: 30 ml Carisoprodol (Soma Tab*) 350 mg PO Q6H PRN PRN Reason: MUSCLE CRAMPS/ACHING Last Admin: 12/14/17 12:26 Dose: 350 mg Device (Nicotine Mouth Piece*) 1 each INH .USE WITH NICOTROL PRN PRN Reason: CRAVING Last Admin: 12/07/17 18:19 Dose: 1 each Gabapentin (Neurontin Cap(*)) 400 mg PO TID [facility] Last Admin: 12/14/17 14:17 Dose: 400 mg Hydroxyzine HCl (Atarax Tab*) 50 mg PO Q6H PRN PRN Reason: ANXIETY Last Admin: 12/14/17 12:27 Dose: 50 mg Ibuprofen (Motrin Tab*) 400 mg PO Q6H PRN PRN Reason: BONE/JOINT PAIN Last Admin: 12/09/17 16:17 Dose: 400 mg Lurasidone HCl (Latuda) 40 mg PO 1700 [facility] Multivitamins (Theragran Tab*) 1 tab PO DAILY [facility] Last Admin: 12/14/17 09:30 Dose: 1 tab Nicotine (Nicotine Inhaler*) 10 mg INH Q2H PRN PRN Reason: CRAVING Last Admin: 12/13/17 18:22 Dose: 10 mg Nicotine (Nicotine Patch 21 Mg/24 Hr*) 1 patch TRANSDERM DAILY@0800 [facility] Last Admin: 12/14/17 07:00 Dose: 1 patch Nicotine Polacrilex (Nicotine Gum*) 2 mg PO Q2H PRN PRN Reason: CRAVING Last Admin: 12/14/17 12:27 Dose: 2 mg Pharmacy Profile Note (Nicotine Patch Removal Note*) 1 note PATCH OFF 2100 [facility] Last Admin: 12/13/17 21:31 Dose: 1 note Propranolol HCl (Inderal Tab*) 20 mg PO BEDTIME ELIJAH Last Admin: 12/13/17 20:26 Dose: 20 mg - Discharge Plan Discharge Plan: Outpatient Follow Up Outpatient Program: ralph ARANGO
[2017-12-14] MEDS: Lurasidone(*) 40 MG TAB PO SCH (17:48)
[2017-12-14] MEDS: Propranolol TAB* 20 MG PO SCH (21:19)
[2017-12-14] MEDS: Nicotine Patch Removal NOTE PATCH OFF SCH (21:22)
[2017-12-15] MEDS: Nicotine GUM* 2 MG PO PRN ×6 (04:15→20:51)
[2017-12-15] MEDS: hydrOXYzine HCL TAB* 50 MG PO PRN ×3 (04:15→21:53)
[2017-12-15] MEDS: Carisoprodol TAB* 350 MG Q6H PRN PO ×3 (04:15→21:53)
[2017-12-15] MEDS: Nicotine PATCH 21 MG/24 HR* PATCH TRANSDERM SCH (07:53)
[2017-12-15] MEDS: Gabapentin CAP(*) 400 MG PO SCH ×3 (07:54→20:50)
[2017-12-15] MEDS: Vitamin THERAPEUTIC TAB PO SCH (07:54)
--- NOTE | 2017-12-15 12:58 | PN ---
MHU: Group Therapy Note - Service Type Service Type: 23913 Group Psychotherapy - Cognitive Behavioral Group Therapy ( CBT):Patient was attentive and participatory in CBT programming this morning, and remained in good behavioral control. Patient expressed positive insights regarding relevant treatment interventions and goals.
[2017-12-15] MEDS: Lurasidone(*) 40 MG TAB PO SCH (16:56)
[2017-12-15] MEDS: Acetaminophen TAB* 325 MG PO PRN (18:50)
[2017-12-15] MEDS: Propranolol TAB* 20 MG PO SCH (20:50)
[2017-12-15] MEDS: Nicotine Inhaler* 10 MG AMP INH PRN (20:51)
[2017-12-15] MEDS: Nicotine Patch Removal NOTE PATCH OFF SCH (21:39)
[2017-12-16] MEDS: Carisoprodol TAB* 350 MG Q6H PRN PO ×3 (08:15→20:52)
[2017-12-16] MEDS: Gabapentin CAP(*) 400 MG PO SCH ×3 (08:16→20:46)
[2017-12-16] MEDS: Vitamin THERAPEUTIC TAB PO SCH (08:16)
[2017-12-16] MEDS: hydrOXYzine HCL TAB* 50 MG PO PRN ×3 (08:16→20:52)
[2017-12-16] MEDS: Nicotine GUM* 2 MG PO PRN ×4 (08:17→20:55)
[2017-12-16] MEDS: Nicotine PATCH 21 MG/24 HR* PATCH TRANSDERM SCH (08:19)
--- NOTE | 2017-12-16 12:03 | PN ---
Subjective - Subjective Date of Service: 12/16/17 Service Type: 93537 Hosp care 15 min low complexity Subjective: Patient lying in bed upon approach, despite a group in progress. He tells sports writer that he was "gathering my thoughts." We reviewed an assignment given to him by sports writer, a decisional balance worksheet in regards to inpatient vs outpatient treatment after discharge. The majority of his answers were in favor of inpatient treatment. He reports he is agreeable to whatever the team "wants to do." Monument Setter Helper instructed him that he is in charge of making decisions for himself. He states that he "wants help." Monument Setter Helper reframed that he is actively receiving help and will continue to do so in any capacity, as long as he is participating. He states he doesn't "know what to do" and that "anxiety is off the scale." He reports utilizing hydroxyzine yesterday but it does not calm down racing thoughts. He states that his sleep last night was "fitful" in that he woke often. He requests an increase in gabapentin to 4x day, as he has taken it that often in the past. Objective - Appearance Appearance: Well Developed/Nourished Dysmorphic Features: Yes Hygiene: Normal Grooming: Well Kept - Behavior Psychomotor Activities: Normal Exhibits Abnormal Movement: No - Attitude and Relatedness Attitude and Relatedness: Superficially Cooperative Eye Contact: Fair - Speech Quality: Unpressured Latencies: Normal Quantity: Appropriate - Mood Patient's Decription of Mood: "Anxious" - Affect Observed Affect: Depressed Affect Consistent with: Dysphoria - Thought Process Patient's Thought Process: Circumstantial Thought Content: No Passive Wish, No Suicidal Planning, No Homicidal Ideation, No Paranoid Ideation - Sensorium Experiencing Hallucinations: No, Sensorium is Clear Type of Hallucinations: Visual: No, Auditory: No, Command: No - Level of Consciousness Level of Consciousness: Alert Orientation: Yes Intact, Yes Orientated to Time, Yes Orientated to Place, Yes Orientated to Person - Impulse Control Impulse Control: Tenuous - Insight and Judgement Insight and Judgement: Fair - Group Participation Particating in Group Activities: No - Medication Management Medication Management Adherence: Yes Assessment - Assessment Merits Inpatient Hospitalization: For Immediate Safety, For Discharge Planning Inpatient DSM-V Dx: F19.259 Clinical Impression: 32yo white male with history of multiple psychiatric hospitalizations and substance use treatment who presented to the ED with c/o psychosis and inability to care for himself. Patient has completed detoxification from opiates. He is tolerating medication trials to target mood and anxiety symptoms. Plan - Plan Treatment Plan: Name: RENETTA ALMANZA Birthdate: 1985 [id number] continue acute intensive psychiatric treatment. may allow staff pass. DC quetiapine and start lurasidone due to side effects. include family and outpatient providers in discharge planning. Continued Medication Management: Start Medication Medications: Current Medications Acetaminophen (Tylenol Tab*) 650 mg PO Q4H PRN PRN Reason: for pain; or Temp >101 F Last Admin: 12/15/17 18:50 Dose: 650 mg Al Hydrox/Mg Hydrox/Simethicone (Maalox Plus*) 30 ml PO Q4H PRN PRN Reason: INDIGESTION Last Admin: 12/04/17 18:03 Dose: 30 ml Carisoprodol (Soma Tab*) 350 mg PO Q6H PRN PRN Reason: MUSCLE CRAMPS/ACHING Last Admin: 12/16/17 08:15 Dose: 350 mg Device (Nicotine Mouth Piece*) 1 each INH .USE WITH NICOTROL PRN PRN Reason: CRAVING Last Admin: 12/07/17 18:19 Dose: 1 each Gabapentin (Neurontin Cap(*)) 400 mg PO TID [facility] Last Admin: 12/16/17 08:16 Dose: 400 mg Hydroxyzine HCl (Atarax Tab*) 50 mg PO Q6H PRN PRN Reason: ANXIETY Last Admin: 12/16/17 08:16 Dose: 50 mg Ibuprofen (Motrin Tab*) 400 mg PO Q6H PRN PRN Reason: BONE/JOINT PAIN Last Admin: 12/09/17 16:17 Dose: 400 mg Lurasidone HCl (Latuda) 60 mg PO 1700 [facility] Last Admin: 12/15/17 16:56 Dose: 40 mg Multivitamins (Theragran Tab*) 1 tab PO DAILY [facility] Last Admin: 12/16/17 08:16 Dose: 1 tab Nicotine (Nicotine Inhaler*) 10 mg INH Q2H PRN PRN Reason: CRAVING Last Admin: 12/15/17 20:51 Dose: 10 mg Nicotine (Nicotine Patch 21 Mg/24 Hr*) 1 patch TRANSDERM DAILY@0800 [facility] Last Admin: 12/16/17 08:19 Dose: 1 patch Nicotine Polacrilex (Nicotine Gum*) 2 mg PO Q2H PRN PRN Reason: CRAVING Last Admin: 12/16/17 08:17 Dose: 2 mg Pharmacy Profile Note (Nicotine Patch Removal Note*) 1 note PATCH OFF 2100 [facility] Last Admin: 12/15/17 21:39 Dose: 1 note - Discharge Plan Discharge Plan: Outpatient Follow Up Outpatient Program: Rigoberto ARANGO
[2017-12-16] MEDS ORDERED: Lurasidone(*) 60 MG TAB PO SCH (17:00)
[2017-12-16] MEDS: Al Hydrox/Mg Hydrox/Simet LIQ* 30 ML UDC PO PRN (20:53)
[2017-12-16] MEDS: Nicotine Patch Removal NOTE PATCH OFF SCH (21:23)
[2017-12-17] MEDS ORDERED: Propranolol TAB* 20 MG PO SCH (00:10)
[2017-12-17] MEDS ORDERED: Propranolol TAB* 20 MG ONE (00:13)
[2017-12-17] MEDS: hydrOXYzine HCL TAB* 50 MG PO PRN ×2 (02:00→08:31)
[2017-12-17] MEDS: Carisoprodol TAB* 350 MG Q6H PRN PO ×2 (02:00→08:31)
[2017-12-17] MEDS: Nicotine Inhaler* 10 MG AMP INH PRN (04:35)
[2017-12-17] MEDS: Nicotine GUM* 2 MG PO PRN ×2 (04:35→06:35)
[2017-12-17] MEDS: Gabapentin CAP(*) 400 MG PO SCH (07:00)
[2017-12-17] MEDS: Nicotine PATCH 21 MG/24 HR* PATCH TRANSDERM SCH (07:00)
[2017-12-17] MEDS: Vitamin THERAPEUTIC TAB PO SCH (07:00)
[2017-12-17 08:07] VITALS: BP 127/100
[2017-12-17] MEDS ORDERED: Naltrexone TAB* 50 MG TAB PO SCH (10:00)
[2017-12-17] MEDS ORDERED: Naltrexone TAB* 50 MG TAB PO ONE (10:04)
--- NOTE | 2017-12-17 19:03 | CONS ---
PSYCHOLOGICAL REPORT: DATE OF CONSULT: 12/11/17 REASON FOR REFERRAL: John was referred for personality testing to help clarify diagnostic impression including historical diagnosis of a bipolar disorder as well as helping to assess concerns regarding characterological vulnerabilities consistent with antisocial personality disorder. TEST ADMINISTERED: John completed the [place] Multiphasic Personality Inventory-2 (MMPI-2), and was given feedback regarding test results in individual conversation. John was also seen intermittently in the context of cognitive behavioral group psychotherapy led by this check writer during his hospitalization. RELEVANT HISTORY: John has a significant mental health and forensic history having been incarcerated in [facility] for 6 months' time. He completed his sentence and parole requirements this past May. Historically , he has had significant contact with substance abuse residential facility treatments as well as prior mental health admissions at [facility] in 2010 and 2013, as well as a prior hospitalization at [facility] in [place], [place]. He has had multiple arrests historically including disorderly conduct and DUIs, but denies any history of violence. He presently lives in [facility] with his mother and describes engaging in outpatient mental health treatment through [facility] as well as attending [facility], which is alcohol and substance abuse treatment facility next door to the mental health clinic in [place], [place]. John presented for admission secondary to encroaching difficulties with depression, describing act of thoughts of engaging in suicidal behaviors. In the past, he has attempted to effect overdoses utilizing medications. Upon his admission, he endorsed having visual hallucinations such as seeing colors and bugs as well as shadows and also endorsed "hearing weird noises." He reports this occurring over the past few weeks and perhaps had been overutilizing prescribed medication including Suboxone. He has significant history of polysubstance abuse and dependence. BEHAVIORAL OBSERVATIONS: While here, John initially was rather socially withdrawn and rather noncommunicative. He would need direct prompts to leave his room to come up for programming and then at least initially would remain very quiet unless directly prompted into conversation. In giving testing feedback, John impressed as rather disorganized in thought, and had significant difficulty in decision making. Discussion addressed whether he would prefer to go to residential treatment facility for continuing care regarding both mental health and substance abuse or return home and engage in outpatient counseling. He remained quite evasive in discussion generally speaking and certainly was not able to make coherent decisions. He was very ambivalent in expressing interest in going home, but wished to comply with treatment recommendation. As his treatment progressed towards discharge, John improved in regards to coherence in speech. He was able to speak in full sentences and showed appropriately variable affect in conversation. He impresses as continuing to struggle with some depressive qualities and in decision making, but his affect certainly improved during the course of his stay here. TEST RESULTS: John provides an exaggerated "cry for help" profile and having elevated all 3 emotional duress indicators on the validity scales between T scores of 85 and greater than 120, which is literally off the charts. He subsequently elevates 8 of the 10 clinical indices save the masculine- feminine and hypomania scales. His clinical scales reflect what is referred to as right-left slope, which indicates higher endorsement of psychotic range difficulties rather than neurotic experiences. However, his depression scale still was extremely elevated at a T score of 95 while his psychoticism scales range between 105 and 120. These are extreme elevations, which are likely to reflect affecting an exaggerated profile in a rather conscious fashion. Of interest, however, he does not elevate the hypomania scale. IMPRESSION AND RECOMMENDATIONS: Concerns regarding John include exaggeration of symptomatology, although he certainly impresses as being quite depressed. The treatment should continue to rule out possible psychosis, although his presentation impresses as being secondary to the context of polysubstance abuse. If John is able to remain clean and sober, his psychiatric symptoms are likely to clear and continue to improve. Continuing treatment should also address lifestyle issues including pursuit of either gainful employment or vocational training in order to help John find some success in these domains. Both his historical difficulties and clinical presentation including testing, support concerns related to antisocial personality traits as well as including recurrent major depression as diagnostic impressions. [id number]/[facility] #: [id number] RACHEL
--- NOTE | 2017-12-18 13:51 | DS ---
CC: [facility] and [facility] in [place].* DISCHARGE SUMMARY: DATE OF ADMISSION: 12/03/17. DATE OF DISCHARGE: 12/17/17. SUPERVISING PSYCHIATRIST: Dr. Tyshawn Poe* (dictated by Florencia Chua NP). DISCHARGE DIAGNOSES: 1. Unspecified bipolar disorder. 2. Opioid use disorder. 3. Generalized anxiety disorder. 4. Hyperlipidemia. 5. Hypertension. CONDITION AT TIME OF DISCHARGE: Improved. The patient reports readiness for discharge. He denies suicidal ideation, HI or . He reports desire to remain free from substances and has accepted naltrexone an FDA approved medication for opioid use disorder. He is also improved in regard to depression and anxiety, has been more interactive on the unit. He agrees to follow up with outpatient services including [facility] and [facility]. Social work has also set him up with case management to assist in utilizing resources in community. MENTAL STATUS EXAM: The patient is a 32-year-old male who appears stated age. He is wearing his own clothing and casually dressed. His ADLs are completed. He has short brown hair and a full pete. He sits in his chair with erect posture and answers questions fully. He is cooperative and motivated. The patient is alert and oriented x3. His eye contact is fair. Speech is soft and articulate. Mood is euthymic with congruent affect. Thought process is logical , goal-directed and coherent. Thought content is negative for SI, positive for mild anxiety in regard to his own ability to follow through on referral, he is receptive to positive reinforcement and cognitive reframing. The patient denies audio or visual hallucination. Insight and judgment are fair to good, much improved. Impulse control is good in the setting. Cognitively, he is awake and answers questions with what is to be an average intellect. INSTRUCTIONS GIVEN TO THE PATIENT: A. Medications: 1. Gabapentin 400 mg p.o. t.i.d. 2. Lisinopril 40 mg daily. 3. Lurasidone 50 mg daily with dinner. 4. Naltrexone 50 mg p.o. daily. 5. Propranolol 20 mg p.o. q.h.s. B. Diet: Low salt, low cholesterol. C. Activity: Ambulation as tolerated. D. Tobacco cessation: Assistance is declined by the patient. There are no pending labs or diagnostic studies. E. Followup Care: He will follow up with [facility] and has intake appointment on 12/23/17 at 2 p.m. He will also follow up with [facility] in [place] referral has been made for care management. F. Substance use followup as stated above. [facility] for outpatient substance use and the patient has also been given a prescription for naltrexone for opioid use disorder. HOSPITAL COURSE: Part A: Reason for admission: The patient presented to the emergency department with multiple psychiatric complaints include suicidal ideation and plan to overdose on medication as well as cutting wrist. He endorsed audio and visual hallucination and presented with symptoms congruent with opioid withdrawal. The patient has been receiving Suboxone treatment. He reported he received a 2-week supply and overused the supply and had been without it for a week. He reported utilizing a combination of Benadryl and loperamide [id number] in great quantities in order to have a high effect. Part B: Psychiatric treatment rendered: The patient was admitted on status. Code status was full. He was placed on 15-minute checks for his safety. He was placed on the clonidine protocol for opioid withdrawal. He tolerated this well albeit opioid withdrawal being very discomforting. We decided to wait to until we obtain collateral information from his Suboxone provider before this was considered to be reinstated. The patient was initially difficult to engage in interview due to extreme anxiety and physical discomfort. He also presented with severe depressive symptoms. He was agreeable to start medication to target these. As he improved physically, he was able to get more information about his history. He reported that he had stopped going to [facility] approximately 2 months ago. Prior to that, he was living at residence for people who have been released from senior care. This was a rented room. Prior to that, he was in [facility] due to various offences related opioid dependence. The patient was able to identify that he had overused Suboxone once prior and was told by his provider that a second misuse would result in discontinuing of the program. The patient was increasingly interactive on the unit, but needed much prompting and redirection. He was often ambivalent about plans after discharge. He expressed extreme rumination in regard to remorse for actions against his family. He reported remorse in regard to not being able to care for himself and being dependent on his family and causing marital strife amongst his parents. The patient was encouraged to utilize tools on the unit and given assignments by this senior writer and other staff to target cognitive distortion. Both the patient and his mother were given much education in that differentiating this diagnosis while under the duress of substance use is difficult. The patient continued to endorse racing thoughts and difficulty with sleep. He agreed to trial of Abilify to better target these symptoms. He reported symptoms that may have been related to akathisia. We were hopeful that Abilify would be an option as this available as a long acting injection. Started benztropine for akathisia and this was switched to propranolol. The patient tolerated propranolol well, but continue to endorse akathisia. He agreed to change to Latuda for better side effect profile and tolerated this well. When we discontinued the propranolol, he felt heart palpitations and dizziness. Therefore, this is likely that he has underlying hypertension. We reinstated propranolol and the patient reported relief from above symptoms. It was also noted that he had elevated triglycerides and cholesterol and was restarted on lisinopril. The patient was inconsistent with group attendants and instructions to complete assignments. He did, however, read a very large novel and did not have difficulty with concentration in that regard. The patient was seeming to stall in his decision whether to attend inpatient rehab or return home and attend outpatient services. The patient was directed to make a decision and he often asked the team to make the decision for him in a polite yet passive way. The patient was notified that inpatient rehabs do have a significant waiting list and that inpatient psychiatric treatment is for acute stabilization. He was instructed to return to his outpatient services that he had previously been in and utilize those resources should he choose to pursue referral for inpatient treatment. John is a kind young man, who appears to have some mild dependency. We hope that he is able to make healthy choices in continuing treatment and we hope that he does well in staying away from substance use. The patient was given discharge instructions by nursing staff and discharged with his mother. On 12/18/17, senior writer received phone call from [place] that Latuda prior authorization was overrided and patient allowed 3 month coverage. Licensed Nurse Practitioner left voice mail with RUI Wu at [facility] to notify of above. FLORENCIA CHUA, VOLLEYBALL COACH [id number]/[facility] #: [id number] [facility] MEDICAL CENTERCharbel
== END 2017-12-17 11:15 | disposition home or self-care (01) | DRG 773 ==
LOC: ED 18:28 → BSU 12-03 13:50
PROVIDERS: ADMIT Psychiatry & Neurology Psychiatry; ATTEND Psychiatry & Neurology Psychiatry
DX: F19.259 Other psychoactive substance dependence with psychoactive substance-induced psychotic disorder, unspecified (principal); R45.851 Suicidal ideations; F31.9 Bipolar disorder, unspecified; F41.1 Generalized anxiety disorder; E78.5 Hyperlipidemia, unspecified; I10 Essential (primary) hypertension; F11.23 Opioid dependence with withdrawal; F17.210 Nicotine dependence, cigarettes, uncomplicated; E66.9 Obesity, unspecified; Z68.32 Body mass index [BMI] 32.0-32.9, adult; Z88.2 Allergy status to sulfonamides; Z79.899 Other long term (current) drug therapy; Z81.1 Family history of alcohol abuse and dependence; Z81.8 Family history of other mental and behavioral disorders
CPT/HCPCS: 36415; 71046; 80061; 80307; 83036; 86703; 90853; 96102; 99222; 99231; 99232; 99233; 99238; 99283; A9270-GY

== ENCOUNTER 2020-10-30 15:26 | Inpatient (IN) ==
[2020-10-30] MEDS ORDERED: LORazepam 2 mg VIAL 1 ml IV PUSH ONE (15:38)
[2020-10-30] MEDS ORDERED: Lorazepam PYXIS KEY PRN ×2 (15:38→17:36)
[2020-10-30] MEDS ORDERED: NS 0.9% 1000 ml BAG 1,000 ML IV ONE (15:41)
[2020-10-30] MEDS ORDERED: Magnesium Sulfate 2 gm BAG 2 GM/50 ML BAG IVPB ONE (16:03)
[2020-10-30 16:08] LABS: Hematocrit 47 % (42-52); Hemoglobin 15.8 g/dL (14.0-18.0); Mean Corpuscular HGB Conc 34 g/dL (31-36); Mean Corpuscular Hemoglobin 30 pg (27-31); Mean Corpuscular Volume 89 fL (80-94); Mean Platelet Volume 8.5 fL (7.4-10.4); Platelet Count 249 10^3/uL (150-450); Red Blood Count 5.26 10^6 /uL (4.18-5.48); Red Cell Distribution Width 13 % (10-15)
[2020-10-30 16:15] LABS: Albumin 4.7 g/dL (3.2-5.2); Anion Gap 11 mmol/L (2-11); CO2 Carbon Dioxide 22 mmol/L (22-32); Calcium 9.7 mg/dL (8.6-10.3); Chloride 105 mmol/L (101-111); Magnesium 2.1 mg/dL (1.9-2.7); Potassium 3.6 mmol/L (3.5-5.0); Sodium 138 mmol/L (135-145)
[2020-10-30 16:22] LABS: ALT 12 U/L (7-52); AST 17 U/L (13-39); Albumin/Globulin Ratio 1.5 (1-3); Alkaline Phosphatase 69 U/L (35-149); Blood Urea Nitrogen 14 mg/dL (6-24); Creatine Kinase 645 U/L (10-223); EGFR African American 99.4 (>60); EGFR Non-African American 82.2 (>60); Globulin 3.1 g/dL (2-4); Glucose 129 mg/dL (70-100); Total Protein 7.8 g/dL (6.4-8.9)
[2020-10-30 16:51] LABS: Alcohol, S < 10 mg/dL (<10); Lithium < 0.10 mmol/L (0.6-1.2); Salicylate < 2.50 mg/dL (<30); Valproic Acid < 13.0 mcg/mL (50-100)
[2020-10-30 17:02] LABS: Acetaminophen < 15 mcg/mL
[2020-10-30] MEDS ORDERED: Lactated Ringers 1000 ml BAG 1,000 ML IV ONE (17:37)
[2020-10-30] MEDS ORDERED: Sodium Bicarbonate 8.4% SYR 50 ml SYRINGE IV ONE (17:44)
[2020-10-30] MEDS ORDERED: Sodium Bicarb 8.4% Vial 50 ML 150 MEQ in D5W 1000 ml BAG 850 ML IV SCH (18:00)
[2020-10-30 18:01] LABS: ABS Basophils 0.1 10^3/ul (0-0.2); ABS Lymphocytes 3.1 10^3/ul (1.0-4.8); ABS Monocytes 1.9 10^3/ul (0-0.8); Eosinophil % 0.2 %; Lymphocyte % 17.2 %
[2020-10-30 18:17] LABS: Urine Appearance Clear; Urine Bilirubin Negative (Negative); Urine Blood 1+ (Negative); Urine Color Yellow; Urine Glucose Negative (Negative); Urine Ketones 1+ (Negative); Urine Nitrite Negative (Negative); Urine Protein Negative (Negative); Urine Specific Gravity 1.015 (1.002-1.030); Urine Urobilinogen Negative (Negative)
[2020-10-30 18:32] LABS: Urine Bacteria 1+ (Absent); Urine Red Blood Cell Trace(0-2/hpf) (Absent); Urine Squamous Epithelial Cell Present (Absent); Urine White Blood Cell Absent (Absent)
[2020-10-30] MEDS ORDERED: Labetalol IV 5 MG/ML 20 ml VIAL IV PUSH PRN (18:33)
[2020-10-30 18:46] LABS: Urine Benzodiazepine Screen None Detected (None Detect); Urine Cannabinoids Screen None Detected (None Detect); Urine Opiates Screen None Detected (None Detect)
[2020-10-30] MEDS: KCL 20 MEQ/100 ML IVPREMIX 20 MEQ/100 ML BAG IV SCH ×2 (19:17→21:55)
[2020-10-30] MEDS ORDERED: LORazepam 2 mg VIAL 1 ml IV ONE (20:45)
[2020-10-30] MEDS: LORazepam 2 mg VIAL 1 ml IV PUSH PRN (21:11)
[2020-10-30] MEDS: Nicotine PATCH 7 MG/24 HR PATCH TRANSDERM SCH (22:26)
[2020-10-30 23:38] LABS: Calcium 8.7 mg/dL (8.6-10.3); EGFR African American 124.1 (>60); EGFR Non-African American 102.6 (>60); Magnesium 2.3 mg/dL (1.9-2.7)
[2020-10-31] MEDS: LORazepam 2 mg VIAL 1 ml IV PUSH PRN ×3 (01:38→20:35)
[2020-10-31] MEDS: Dexmedetomidine 1,000 MCG in NS 0.9% 250 ml 240 ML IV SCH ×2 (02:18→12:01)
[2020-10-31 06:05] LABS: ABS Basophils 0.1 10^3/ul (0-0.2); ABS Eosinophils 0.2 10^3/ul (0-0.6); ABS Lymphocytes 3.1 10^3/ul (1.0-4.8); ABS Monocytes 1.3 10^3/ul (0-0.8); ABS Neutrophils 6.4 10^3/ul (1.5-7.7); Eosinophil % 1.4 %; Hematocrit 40 % (42-52); Hemoglobin 13.7 g/dL (14.0-18.0); Lymphocyte % 28.2 %; Mean Corpuscular HGB Conc 34 g/dL (31-36); Mean Corpuscular Hemoglobin 30 pg (27-31); Mean Corpuscular Volume 88 fL (80-94); Mean Platelet Volume 7.9 fL (7.4-10.4); Platelet Count 208 10^3/uL (150-450); Red Blood Count 4.53 10^6 /uL (4.18-5.48); Red Cell Distribution Width 13 % (10-15)
[2020-10-31 06:27] LABS: Calcium 8.2 mg/dL (8.6-10.3); EGFR African American 135.1 (>60); EGFR Non-African American 111.6 (>60); Magnesium 2.2 mg/dL (1.9-2.7); Myoglobin 115.6 ng/mL (17.4-105.7); Phosphorus 3.5 mg/dL (2.5-5.0); Potassium 3.8 mmol/L (3.5-5.0)
[2020-10-31] MEDS ORDERED: Sodium Bicarb 8.4% Vial 50 ML 150 MEQ in D5W 1000 ml BAG 850 ML IV SCH (07:48)
[2020-10-31] MEDS: Pantoprazole VIAL 40 MG VIAL IV SCH (08:17)
[2020-10-31] MEDS: Nicotine PATCH 7 MG/24 HR PATCH TRANSDERM SCH (08:17)
[2020-10-31] MEDS: KCL 20 MEQ/100 ML IVPREMIX 20 MEQ/100 ML BAG IV SCH ×2 (08:18→12:01)
[2020-10-31] MEDS ORDERED: Lorazepam PYXIS KEY PRN (09:34)
[2020-10-31 13:47] LABS: Calcium 8.6 mg/dL (8.6-10.3); EGFR African American 143.4 (>60); EGFR Non-African American 118.5 (>60); Magnesium 2.2 mg/dL (1.9-2.7); Potassium 4.5 mmol/L (3.5-5.0)
[2020-10-31] MEDS: Lactated Ringers 1000 ml BAG 1,000 ML IV SCH (18:33)
[2020-10-31] MEDS: Heparin 5000 UNITS/ML 1 mL VIAL SUBCUT SCH (20:35)
[2020-11-01] MEDS: LORazepam 2 mg VIAL 1 ml IV PUSH PRN ×2 (01:09→05:21)
[2020-11-01] MEDS: Lactated Ringers 1000 ml BAG 1,000 ML IV SCH (04:10)
[2020-11-01 05:42] LABS: ABS Basophils 0.1 10^3/ul (0-0.2); ABS Eosinophils 0.2 10^3/ul (0-0.6); ABS Lymphocytes 2.9 10^3/ul (1.0-4.8); ABS Monocytes 0.9 10^3/ul (0-0.8); ABS Neutrophils 6.9 10^3/ul (1.5-7.7); Eosinophil % 1.9 %; Hematocrit 41 % (42-52); Hemoglobin 14.4 g/dL (14.0-18.0); Lymphocyte % 26.6 %; Mean Corpuscular HGB Conc 35 g/dL (31-36); Mean Corpuscular Hemoglobin 31 pg (27-31); Mean Corpuscular Volume 89 fL (80-94); Mean Platelet Volume 8.2 fL (7.4-10.4); Platelet Count 181 10^3/uL (150-450); Red Blood Count 4.67 10^6 /uL (4.18-5.48); Red Cell Distribution Width 13 % (10-15); White Blood Count 10.9 10^3/uL (3.5-10.8)
[2020-11-01 06:00] LABS: Calcium 8.6 mg/dL (8.6-10.3); EGFR African American 127.6 (>60); EGFR Non-African American 105.4 (>60)
[2020-11-01 06:13] LABS: Potassium 4.2 mmol/L (3.5-5.0)
[2020-11-01] MEDS: Pantoprazole VIAL 40 MG VIAL IV SCH (07:47)
[2020-11-01] MEDS: Heparin 5000 UNITS/ML 1 mL VIAL SUBCUT SCH (07:47)
[2020-11-01] MEDS ORDERED: LORazepam 2 mg VIAL 1 ml IV PUSH PRN (07:48)
[2020-11-01] MEDS: Nicotine PATCH 7 MG/24 HR PATCH TRANSDERM SCH (07:49)
[2020-11-01] MEDS ORDERED: Lorazepam PYXIS KEY PRN (08:24)
[2020-11-01] MEDS ORDERED: LORazepam 2 mg VIAL 1 ml IV PUSH ONE (09:00)
[2020-11-01] MEDS ORDERED: Al Hydrox/Mg Hydrox/Simet LIQ 30 ML UDC PO PRN (16:48)
[2020-11-02 07:36] LABS: HDL Cholesterol 27.4 mg/dL
[2020-11-02] MEDS: Vitamin THERAPEUTIC TAB PO SCH (08:06)
[2020-11-02] MEDS: Nicotine PATCH 7 MG/24 HR PATCH TRANSDERM SCH (08:07)
[2020-11-02] MEDS ORDERED: Paliperidone SUSTENNA 234 MG/1.5 ML IM ONE (12:19)
[2020-11-03] MEDS: Nicotine PATCH 7 MG/24 HR PATCH TRANSDERM SCH (07:37)
[2020-11-03] MEDS: Vitamin THERAPEUTIC TAB PO SCH (07:37)
[2020-11-04] MEDS: Nicotine PATCH 7 MG/24 HR PATCH TRANSDERM SCH (08:16)
[2020-11-04] MEDS: Vitamin THERAPEUTIC TAB PO SCH (08:17)
[2020-11-05] MEDS: Nicotine PATCH 7 MG/24 HR PATCH TRANSDERM SCH (07:19)
[2020-11-05] MEDS: Vitamin THERAPEUTIC TAB PO SCH (07:20)
[2020-11-06] MEDS: Vitamin THERAPEUTIC TAB PO SCH (07:53)
[2020-11-06] MEDS: Nicotine PATCH 7 MG/24 HR PATCH TRANSDERM SCH (10:13)
[2020-11-07] MEDS: Nicotine PATCH 7 MG/24 HR PATCH TRANSDERM SCH (08:27)
[2020-11-07] MEDS: Vitamin THERAPEUTIC TAB PO SCH (08:28)
[2020-11-08] MEDS: Vitamin THERAPEUTIC TAB PO SCH (09:19)
[2020-11-08] MEDS: Nicotine PATCH 7 MG/24 HR PATCH TRANSDERM SCH (09:20)
[2020-11-09] MEDS: Nicotine PATCH 7 MG/24 HR PATCH TRANSDERM SCH ×2 (08:03→09:15)
[2020-11-09] MEDS: Vitamin THERAPEUTIC TAB PO SCH ×2 (08:03→09:15)
[2020-11-09 09:12] VITALS: BP 149/102
== END 2020-11-09 13:30 | disposition home or self-care (01) | DRG 812 ==
LOC: ED 15:26 → ICU 18:28 → BSU 11-01 13:53
PROVIDERS: ADMIT Internal Medicine; ATTEND Psychiatry & Neurology Psychiatry